=== PATIENT | male | born 1955 | race Caucasian/White ===

== ENCOUNTER 2019-08-20 21:49 | Inpatient (IN) | payer MEDICARE, OTHER, SELFPAY ==
--- NOTE | 2019-08-20 22:16 | DI.RAD.S_ITS ---
PROCEDURE: XR CHEST 1V INDICATIONS: SOB, fatigue TECHNIQUE: One view of the chest was acquired. COMPARISON: None. FINDINGS: Surgical changes and devices: None. Lungs and pleura: Diffuse interstitial prominence. Veil-like opacification of the costophrenic angles posterior representing small bilateral pleural effusions. No pneumothorax. No focal consolidation. Mediastinum: Mediastinal contours appear normal. Heart size is prominent. Bones and chest wall: No suspicious bony lesions. Overlying soft tissues appear unremarkable. IMPRESSION: Diffuse interstitial prominence with mild enlargement of the cardiac silhouette may represent early pulmonary edema/CHF. An infectious/inflammatory process excluded if clinically appropriate. Dictated by: Ronaldo Hampton M.D. on 08/21/2019 at 8:58 Approved by: Ronaldo Hampton M.D. on 08/21/2019 at 8:59
--- NOTE | 2019-08-20 22:20 | ED_ITS ---
HPI - SOB/Dyspnea General Chief Complaint: Extremity Problem,Nontraumatic Stated Complaint: LEFT LEG INFECTION BOT LEGS ARE SWELLING Time Seen by Provider: 08/20/19 21:53 Source: patient and family Mode of arrival: Wheelchair Limitations: no limitations History of Present Illness HPI Narrative: 63-year-old male smoker with history of CHF, AFib (not coagulated), hypertension, diabetes, morbid obesity presents with his in the chief complaint of worsening fatigue, shortness of breath and swelling in his lower extremities. His shortness of breath become significant when laying flat and with exertion. He complains of a 40 lb weight gain in the past month or so. He has pain in both feet as a consequence of his swelling. He denies any chest pain is not dizzy or lightheaded. He was seen at an outside facility a few weeks ago under similar circumstances. MD Complaint: shortness of breath Onset (ago): day(s) Severity: moderate Consistency/Duration: constant Relieving factors: rest Exacerbating factors: lying flat and exertion Known history of: congestive heart failure and diabetes Treatment prior to arrival: none Related Data Home oxygen amount: none Home Medications Medication Instructions Recorded Confirmed digoxin 125 mcg PO DAILY 08/20/19 08/20/19 diltiazem HCl 240 mg PO DAILY 08/20/19 08/20/19 fluticasone propion-salmeterol 1 inh INHALATION BID 08/20/19 08/20/19 [Advair Diskus] furosemide [Lasix] 40 mg PO BID 08/20/19 08/20/19 levothyroxine 50 mcg PO DAILY 08/20/19 08/20/19 metoprolol succinate 150 mg PO DAILY 08/20/19 08/20/19 pantoprazole 40 mg PO DAILY 08/20/19 08/20/19 Allergies Allergy/AdvReac Type Severity Reaction Status Date / Time No Known Drug Allergies Allergy Verified 08/20/19 22:26 Review of Systems Constitutional Constitutional: Denies chills, Reports fatigue, Denies fever(s), Denies frequent falls, Denies lethargy and Denies weakness Eyes Eyes: Denies change in vision, Denies eye discharge, Denies irritation and Denies loss of vision ENT Ears, Nose, Mouth, and Throat: Denies change in voice, Denies dizziness, Denies neck pain, Denies sore throat and Denies throat swelling Cardiovascular Cardiovascular: Denies chest pain, Reports pedal edema, Denies irregular heart rhythm, Reports leg edema, Denies lightheadedness, Denies palpitations, Reports dyspnea, Reports dyspnea on exertion and Reports orthopnea Respiratory Respiratory: Denies cough, Reports dyspnea, Reports dyspnea on exertion and Denies wheezing Gastrointestinal Gastrointestinal: Denies abdominal pain, Denies change in bowel habits, Denies diarrhea, Denies nausea and Denies vomiting Musculoskeletal Musculoskeletal: Denies neck pain and Denies numbness Integumentary/Breasts Skin/Breast: Denies pruritus, Denies erythema, Denies rash and Denies wounds Neurologic Neurologic: Denies behavioral changes, Denies confusion, Denies dizziness, Denies frequent falls, Denies loss of vision, Denies numbness and Denies weakness Psychiatric Psychiatric: Denies anxiety, Denies behavioral changes, Denies confusion, Denies depression, Denies homicidal ideation and Denies suicidal ideation Endocrine Endocrine: Reports fatigue, Denies flushing and Denies palpitations Hematologic/Lymphatic Hematologic/Lymphatic: Denies easy bruising Allergic/Immunologic Allergic/Immunologic: Denies urticaria, Denies throat swelling and Denies wheezing Patient History Medical History (Updated 08/21/19 @ 01:14 by JOSE MANUEL Demarco) Acquired hypothyroidism (Acute) Chronic kidney disease, stage 3 (Acute) Congestive heart failure (Acute) COPD (chronic obstructive pulmonary disease) (Acute) Current smoker (Acute) Diabetes mellitus type 2 in obese (Acute) Gastric ulcer (Acute) History of GI bleed (Acute) History of noncompliance with medical treatment (Acute) Iron deficiency anemia (Acute) Morbid obesity (Acute) Obstructive sleep apnea (Acute) Persistent atrial fibrillation (Acute) Social History household members: spouse Smoking Status: Former smoker alcohol intake: former Smoking Status: Current every day smoker Substance Use Type: does not use Exam Narrative Exam Narrative: GENERAL: [] year old patient appears stated age. Well-nourished, well-developed patient, in mild distress.SOB HEAD: Atraumatic. Normocephalic. EYES: Pupils equal round and reactive. Extraocular motions intact. No scleral icterus. No injection or drainage. ENT: Nose without bleeding, purulent drainage. Throat without erythema, tonsillar hypertrophy or exudate. Airway patent. NECK: Trachea midline. Non tender CARDIOVASCULAR: Tachycardic and irregular rhythm without murmurs, gallops, or rubs. RESPIRATORY: Decreased breath sounds bilaterally with expiratory wheeze and faint crackles in bases GASTROINTESTINAL: Abdomen soft, non-tender, nondistended. EXTREMITIES: Significant lower extremity swelling with tense edema, erythema bilaterally BACK: Nontender without deformity or crepitance. No flank tenderness. NEURO: AOx3. SKIN: No rash or erythema of visible areas other than that which is noted above Initial Vital Signs Initial Vital Signs: Vital Signs Temperature 99.6 F 08/20/19 22:21 Pulse Rate 143 H 08/20/19 22:21 Respiratory Rate 32 H 08/20/19 22:21 Blood Pressure 159/84 H 08/20/19 22:21 Pulse Oximetry 96 08/20/19 22:21 Course Orders Ordered: ED Orders 08/20/19 22:16 XR chest 1V Stat 08/20/19 22:25 Digoxin Stat 08/20/19 22:35 C-Reactive Protein Quant Stat Complete Blood Count AUTO DIFF Stat Comprehensive Metabolic Panel Stat Ferritin Stat Lactate (Lactic Acid) Stat Lipase Stat Magnesium Stat NT-proBNP (BNP-Adult 18+) Stat Prothrombin Time INR Stat Troponin & CK Cardiac Panel Stat 08/20/19 22:45 Blood Culture Stat 08/21/19 EC echo doppler complete Routine 08/21/19 00:14 Consult to Dietitian, Adult Routine Consult to Discharge Planning Routine 08/21/19 00:23 EKG-12 Lead Stat 08/21/19 00:24 Urinalysis and Microscopic Routine 08/21/19 05:00 Basic Metabolic Panel Routine Complete Blood Count AUTO DIFF Routine Magnesium Routine Acetaminophen (Tylenol) 975 mg PO Q8H PRN PRN Reason: Fever/Mild Pain (1-3) Al Hydrox/Mg Hydrox/Simethicone (Maalox Plus) 30 ml PO Q6HR PRN PRN Reason: Dyspepsia Albuterol (Ventolin Hfa (Vent/Covid R/O)) 1 puff INH RTQ4HR PRN PRN Reason: Shortness Of Breath Albuterol/Ipratropium (Combivent Respimat) 2 puff INH RTBID [facility] Bisacodyl (Dulcolax) 10 mg PO DAILY PRN PRN Reason: Constipation Dextrose (D50w) 25 gm IV PRN PRN; Protocol PRN Reason: Hypoglycemia Digoxin (Lanoxin) 0.125 mg PO DAILY [facility] Diltiazem HCl (Cardizem Cd) 240 mg PO DAILY [facility] Docusate Sodium (Colace) 100 mg PO BID PRN PRN Reason: Constipation Ferrous Sulfate (Ferrous Sulfate) 325 mg PO BIDWM [facility] Furosemide (Lasix) 40 mg PO BID [facility] DILTIAZEM (Diltiazem 125 Mg/125 Ml-D5w) 125 mg in 125 mls @ 5 mls/hr IV TITRATE [facility]; Protocol Last Titration: 08/21/19 01:50 Dose: 15 mg/hr, 15 mls/hr Documented by: Titration: 08/21/19 00:57 Dose: 10 mg/hr, 10 mls/hr Documented by: Titration: 08/21/19 00:01 Dose: 7 mg/hr, 7 mls/hr Documented by: [email or web address] Admin: 08/20/19 22:50 Dose: 5 mg/hr, 5 mls/hr Documented by: TAMMY Magnesium Sulfate (Magnesium Sulfate) 2 gm in 50 mls @ 25 mls/hr IV NOW ONE Stop: 08/21/19 02:05 Last Admin: 08/21/19 01:01 Dose: 25 mls/hr Documented by: GLADYS Cosigned by: BON Insulin Aspart (Novolog Flexpen) 0 unit SUBCUT ACHS [facility]; Protocol Levothyroxine Sodium (Synthroid) 50 mcg PO DAILY [facility] Naloxone HCl (Narcan) 0.2 mg IV Q2MIN PRN PRN Reason: Opiate Reversal Non-Formulary Medication (Metoprolol Succinate) 150 mg PO DAILY [facility] Ondansetron HCl (Zofran) 4 mg IV Q8HR PRN PRN Reason: Nausea And Vomiting Oxycodone HCl (Percolone) 10 mg PO Q6HR PRN PRN Reason: Pain, Severe (7-10) Oxycodone HCl (Percolone) 5 mg PO Q6HR PRN PRN Reason: Pain, Moderate (4-6) Pantoprazole Sodium (Protonix) 40 mg IV DAILY [facility] Polyethylene Glycol (Miralax) 17 gm PO DAILY PRN PRN Reason: Constipation Fluticasone/Salmeterol (Advair 250/50 Diskus) 1 puff INH BID [facility] Sodium Chloride (Normal Saline 0.9% Flush) 10 ml IV PRN PRN PRN Reason: Flush Last Admin: 08/21/19 01:03 Dose: 10 ml Documented by: GLADYS Sodium Chloride (Normal Saline 0.9% Flush) 10 ml IV BID [facility] Discontinued Medications Aspirin (Aspirin Ec) 81 mg PO DAILY [facility] Diltiazem HCl (Cardizem) 20 mg IV NOW ONE Stop: 08/20/19 22:45 Last Admin: 08/20/19 22:50 Dose: 20 mg Documented by: TAMMY Enoxaparin Sodium (Lovenox) 165 mg 1 mg/kg (165 mg) SUBCUT BID [facility] Last Admin: 08/21/19 01:07 Dose: Not Given Documented by: GLADYS Furosemide (Lasix) 40 mg IV NOW ONE Stop: 08/20/19 23:20 Last Admin: 08/20/19 23:25 Dose: 40 mg Documented by: TAMMY Metoprolol Tartrate (Lopressor) 5 mg IV NOW ONE Stop: 08/21/19 01:26 Last Admin: 08/21/19 01:29 Dose: 5 mg Documented by: GLADYS Oxycodone HCl (Percolone) 5 mg PO NOW ONE Stop: 08/20/19 23:40 Last Admin: 08/20/19 23:51 Dose: 5 mg Documented by: TAMMY Vital Signs Vital signs: Vital Signs - 8 hr 08/20/19 22:21 08/20/19 22:30 08/20/19 22:50 Temperature 99.6 F Pulse Rate 143 H 147 H 142 H Respiratory Rate 32 H 32 H Blood Pressure 159/84 H 173/93 H 173/93 H Pulse Oximetry 96 93 08/20/19 23:00 08/21/19 00:00 Temperature Pulse Rate 127 H 137 H Respiratory Rate 32 H 27 H Blood Pressure 128/69 151/67 H Pulse Oximetry 95 96 MDM - SOB/Dyspnea Lab Data Result diagrams: 08/20/19 22:35 08/20/19 22:35 Labs: Lab Results 08/20/19 08/20/19 08/20/19 Range/Units 22:25 22:35 22:35 WBC 8.0 (4.5-11.0) X10^3/uL RBC 4.16 L (4.5-5.9) X10^6/uL Hgb 9.2 L (13.5-17.5) g/dL Hct 29.9 L (41-53) % MCV 71.9 L (80-100) fL MCH 22.0 L (26-34) PG MCHC 30.6 (30-36) % RDW 21.7 H (11.6-14.8) % Plt Count 112 L (150-400) X10^3/uL Neut % (Auto) 74.8 (50-75) % Lymph % (Auto) 9.8 L (25-40) % Coleman % (Auto) 12.9 (3-14) % Eos % (Auto) 1.1 L (2-4) % Baso % (Auto) 1.4 (0-2) % Neut # (Auto) 6000 (7964-2285) /uL Lymph # (Auto) 800 L (1839-4896) /uL Coleman # (Auto) 1000 H (0-900) /uL Eos # (Auto) 100 (0-450) /uL Baso # (Auto) 100 (0-100) /uL RBC Morphology See below Anisocytosis 2+ H PT (10.1-12.7) SECONDS INR (0.9-1.3) Sodium 137 (137-145) mmol/L Potassium 4.3 (3.4-5.1) mmol/L Chloride 94 L (98-107) mmol/L Carbon Dioxide 36 H (22-32) mmol/L BUN 33 H (9-20) mg/dL Creatinine 1.24 (0.66-1.25) mg/dL Estimated GFR 59.3 L (>60) mL/min BUN/Creatinine Ratio 26.6 H (6-22) Glucose 141 H (80-110) mg/dL Hemoglobin A1c (4.0-6.0) % Lactate (0.7-2.1) mmol/L Calcium 9.1 (8.4-10.2) mg/dL Magnesium (1.6-2.3) mg/dL Ferritin (18-464) ng/mL Total Bilirubin 1.1 (0.2-1.3) mg/dL AST 19 (17-59) IU/L ALT 10 (<50) IU/L Alkaline Phosphatase 92 (38-126) U/L Total Creatine Kinase (55-170) U/L CK-MB (CK-2) CK-MB (CK-2) Rel Index Troponin I (0.01-0.034) ng/mL C-Reactive Protein 3.8 H (<1.0) mg/dL NT-Pro-B Natriuret Pep (<125) pg/mL Total Protein 6.9 (6.3-8.2) g/dL Albumin 3.6 (3.5-5.0) g/dL Globulin 3.3 (1.7-4.1) g/dL Albumin/Globulin Ratio 1.1 (1.0-2.8) Lipase (23-300) U/L Digoxin 0.6 L (0.8-2.0) ng/mL COVID-19 PCR (Negative) 08/20/19 08/20/19 08/20/19 Range/Units 22:35 22:35 22:35 WBC (4.5-11.0) X10^3/uL RBC (4.5-5.9) X10^6/uL Hgb (13.5-17.5) g/dL Hct (41-53) % MCV (80-100) fL MCH (26-34) PG MCHC (30-36) % RDW (11.6-14.8) % Plt Count (150-400) X10^3/uL Neut % (Auto) (50-75) % Lymph % (Auto) (25-40) % Coleman % (Auto) (3-14) % Eos % (Auto) (2-4) % Baso % (Auto) (0-2) % Neut # (Auto) (3358-3024) /uL Lymph # (Auto) (3438-4345) /uL Coleman # (Auto) (0-900) /uL Eos # (Auto) (0-450) /uL Baso # (Auto) (0-100) /uL RBC Morphology Anisocytosis PT 16.4 H (10.1-12.7) SECONDS INR 1.4 H (0.9-1.3) Sodium (137-145) mmol/L Potassium (3.4-5.1) mmol/L Chloride (98-107) mmol/L Carbon Dioxide (22-32) mmol/L BUN (9-20) mg/dL Creatinine (0.66-1.25) mg/dL Estimated GFR (>60) mL/min BUN/Creatinine Ratio (6-22) Glucose (80-110) mg/dL Hemoglobin A1c (4.0-6.0) % Lactate 1.4 (0.7-2.1) mmol/L Calcium (8.4-10.2) mg/dL Magnesium 1.5 L (1.6-2.3) mg/dL Ferritin 11 L (18-464) ng/mL Total Bilirubin (0.2-1.3) mg/dL AST (17-59) IU/L ALT (<50) IU/L Alkaline Phosphatase (38-126) U/L Total Creatine Kinase 23 L (55-170) U/L CK-MB (CK-2) TNP CK-MB (CK-2) Rel Index TNP Troponin I < 0.012 (0.01-0.034) ng/mL C-Reactive Protein (<1.0) mg/dL NT-Pro-B Natriuret Pep 1540 H (<125) pg/mL Total Protein (6.3-8.2) g/dL Albumin (3.5-5.0) g/dL Globulin (1.7-4.1) g/dL Albumin/Globulin Ratio (1.0-2.8) Lipase 159 (23-300) U/L Digoxin (0.8-2.0) ng/mL COVID-19 PCR (Negative) 08/20/19 08/20/19 Range/Units 22:35 23:15 WBC (4.5-11.0) X10^3/uL RBC (4.5-5.9) X10^6/uL Hgb (13.5-17.5) g/dL Hct (41-53) % MCV (80-100) fL MCH (26-34) PG MCHC (30-36) % RDW (11.6-14.8) % Plt Count (150-400) X10^3/uL Neut % (Auto) (50-75) % Lymph % (Auto) (25-40) % Coleman % (Auto) (3-14) % Eos % (Auto) (2-4) % Baso % (Auto) (0-2) % Neut # (Auto) (4813-5719) /uL Lymph # (Auto) (8399-3491) /uL Coleman # (Auto) (0-900) /uL Eos # (Auto) (0-450) /uL Baso # (Auto) (0-100) /uL RBC Morphology Anisocytosis PT (10.1-12.7) SECONDS INR (0.9-1.3) Sodium (137-145) mmol/L Potassium (3.4-5.1) mmol/L Chloride (98-107) mmol/L Carbon Dioxide (22-32) mmol/L BUN (9-20) mg/dL Creatinine (0.66-1.25) mg/dL Estimated GFR (>60) mL/min BUN/Creatinine Ratio (6-22) Glucose (80-110) mg/dL Hemoglobin A1c 6.9 H (4.0-6.0) % Lactate (0.7-2.1) mmol/L Calcium (8.4-10.2) mg/dL Magnesium (1.6-2.3) mg/dL Ferritin (18-464) ng/mL Total Bilirubin (0.2-1.3) mg/dL AST (17-59) IU/L ALT (<50) IU/L Alkaline Phosphatase (38-126) U/L Total Creatine Kinase (55-170) U/L CK-MB (CK-2) CK-MB (CK-2) Rel Index Troponin I (0.01-0.034) ng/mL C-Reactive Protein (<1.0) mg/dL NT-Pro-B Natriuret Pep (<125) pg/mL Total Protein (6.3-8.2) g/dL Albumin (3.5-5.0) g/dL Globulin (1.7-4.1) g/dL Albumin/Globulin Ratio (1.0-2.8) Lipase (23-300) U/L Digoxin (0.8-2.0) ng/mL COVID-19 PCR Negative (Negative) Urine Dip Bedside Urine Glucose Negative Bedside Urine Bilirubin - Negative Bedside Urine Ketone - Negative Urine Specific [place] 1.015 Bedside Urine Occult Blood - Negative Bedside Urine pH 6.0 Bedside Urine Protein - Negative Bedside Urine Urobilinogen - Negative Bedside Urine Nitrite - Negative Bedside Urine Leukocytes - Negative Esterase Discharge Plan Departure Patient Disposition: Admitted As Inpatient Clinical Impression: Atrial fibrillation with RVR Acute CHF Qualifiers: Heart failure type: unspecified Qualified Code(s): I50.9 - Heart failure, unspecified Discharge Date/Time: 08/21/19 00:24 Admit Date/Time: 08/21/19 00:13 Admit Provider: Frantz Alvarez
[2019-08-20 22:21] VITALS: BP 159/84; PULSE 143; RESP 32; TEMP 37.6; O2SAT 96; BMI 53.1
[2019-08-20 22:30] VITALS: BP 173/93; PULSE 147; RESP 32; O2SAT 93
--- NOTE | 2019-08-20 22:30 | PC.NURSE ---
PT arrives stating increasing painful bi lat leg swelling and redness. Pt also states worsening fatigue and shortness of breath worse when flat and with exertion and also states 40 lb weight gain in the past month. Denies chest pain or dizziness. Pt has history of CHF, AFib, htn and diabetes. Pt has bilat diminished LS upon auscultation. Pt is Tachycardic HR 130's and tachcypnea R 30's on RA 92%. Pt states did not take any of his normal home meds today, Dr. Nuñez aware.
[2019-08-20 22:43] LABS: Add Manual Diff / Slide Review NO; Basophils Absolute Auto 100 /uL (0-100); Basophils Percent Auto 1.4 % (0-2); Eosinophils Absolute Auto 100 /uL (0-450); Eosinophils Percent Auto 1.1 % (2-4); Hematocrit 29.9 % (41-53); Hemoglobin 9.2 g/dL (13.5-17.5); Lymphocytes Absolute Auto 800 /uL (1100-4500); Lymphocytes Percent Auto 9.8 % (25-40); Mean Corpuscular HGB Conc 30.6 % (30-36); Mean Corpuscular Volume 71.9 fL (80-100); Monocytes Absolute Auto 1000 /uL (0-900); Monocytes Percent Auto 12.9 % (3-14); Neutrophils Absolute Auto 6000 /uL (1500-7000); Neutrophils Percent Auto 74.8 % (50-75); Platelet Count 112 X10^3/uL (150-400); Red Blood Cell Count 4.16 X10^6/uL (4.5-5.9); Red Cell Distribution Width 21.7 % (11.6-14.8)
[2019-08-20 22:49] LABS: INR 1.4 (0.9-1.3); Prothrombin Time 16.4 SECONDS (10.1-12.7)
[2019-08-20 22:50] VITALS: BP 173/93; PULSE 142
[2019-08-20] MEDS: dilTIAZem 5 MG/ML SDV 20 MG IV (22:50)
[2019-08-20] MEDS: DILTIAZEM 125 MG/125 ML PIGGYBACK IV (22:50)
[2019-08-20 22:54] LABS: Alanine Aminotransferase 10 IU/L (<50); Albumin 3.6 g/dL (3.5-5.0); Albumin Globulin Ratio 1.1 (1.0-2.8); Alkaline Phosphatase 92 U/L (38-126); Aspartate Aminotransferase 19 IU/L (17-59); BUN Creatinine Ratio 26.6 (6-22); Bilirubin Total 1.1 mg/dL (0.2-1.3); Blood Urea Nitrogen 33 mg/dL (9-20); Calcium 9.1 mg/dL (8.4-10.2); Carbon Dioxide 36 mmol/L (22-32); Chloride 94 mmol/L (98-107); Estimated Glomerular Filt Rate 59.3 mL/min (>60); Globulin 3.3 g/dL (1.7-4.1); Glucose 141 mg/dL (80-110); HEMOLYSIS < 15 (0-50); Lactate (Lactic Acid) 1.4 mmol/L (0.7-2.1); Potassium 4.3 mmol/L (3.4-5.1); Sodium 137 mmol/L (137-145); Total Protein 6.9 g/dL (6.3-8.2)
[2019-08-20 22:55] LABS: Creatine Kinase 23 U/L (55-170); Lipase 159 U/L (23-300); Magnesium 1.5 mg/dL (1.6-2.3)
[2019-08-20 23:00] VITALS: BP 128/69; PULSE 127; RESP 32; O2SAT 95
[2019-08-20 23:04] LABS: Anisocytosis 2+
[2019-08-20 23:07] LABS: NT-proBNP (BNP-Adult 18+) 1540 pg/mL (<125); Troponin I < 0.012 ng/mL (0.01-0.034)
[2019-08-20 23:15] LABS: C-Reactive Protein Quant 3.8 mg/dL (<1.0)
[2019-08-20] MEDS: FUROSEMIDE 40 MG/4 ML VIAL IV (23:25)
[2019-08-20 23:29] LABS: Ferritin 11 ng/mL (18-464)
[2019-08-20 23:34] LABS: Digoxin 0.6 ng/mL (0.8-2.0)
[2019-08-20] MEDS: OXYCODONE IR 5 MG TABLET PO (23:51)
[2019-08-21] VITALS (34 sets, daily range): BP systolic 98–153; BP diastolic 57–90; PULSE 97–137; RESP 11–33; TEMP 36.3–37.2; O2SAT 89–96; BMI 55.1
[2019-08-21 00:44] LABS: Hemoglobin A1C% w Est Avg Glu 6.9 % (4.0-6.0)
[2019-08-21] MEDS: MAGNESIUM SULFATE 2 GM/50 ML PIGGYBACK IV (01:01)
[2019-08-21] MEDS: SODIUM CHLORIDE 0.9% FLUSH 10 ML IV ×3 (01:03→17:54)
[2019-08-21 01:16] LABS: COVID19 -Nasal RAPID Negative (Negative)
[2019-08-21] MEDS: METOPROLOL TARTRATE 5 MG/5 ML INJ IV (01:29)
--- NOTE | 2019-08-21 01:50 | PC.ADMIT ---
[id number] Admission Note: Late entry 0100 pt arrived to unit via stretcher. Transfer 1PA to bed. SOB upon excerption. Weakness in BLE. AFIB RVR on tele. HR running in the 130-140s. Dilt gtt running at 7, increased to 10 ml/hr mg/hr per protocol. Pt voiding to urinal. Pt alert and oriented x4. Pt quite the historian. Pt reports pain in BLE at 6/10, reports tolerating pain. Skin check done with LAYLA SALAZAR. Erythema, edema, and flaky skin to BLE. The patient,Patrick Ibrahim,63 y/o, was given written information regarding hospital policies, unit procedures and contact persons. Patient's smoking status: Former smoker. Vital Signs - 8 hr 08/20/19 22:21 08/20/19 22:30 08/20/19 22:50 Temperature 99.6 F Pulse Rate 143 H 147 H 142 H Respiratory Rate 32 H 32 H Blood Pressure 159/84 H 173/93 H 173/93 H Pulse Oximetry 96 93 08/20/19 23:00 08/21/19 00:00 08/21/19 00:40 Temperature 98.3 F Pulse Rate 127 H 137 H 132 H Respiratory Rate 32 H 27 H 18 Blood Pressure 128/69 151/67 H 146/90 H Pulse Oximetry 95 96 95 08/21/19 01:30 Temperature Pulse Rate 125 H Respiratory Rate 15 Blood Pressure 153/84 H Pulse Oximetry 92
--- NOTE | 2019-08-21 01:55 | PC.NURSE ---
Addendum entered by Jaky Maldonado R.N. 08/21/19 04:31: HR now running 100-120. Pt resting without complaints. Wrapped legs in elaina wrap per order Addendum entered by Jaky Maldonado R.N. 08/21/19 02:07: Pt sats dropped to 80% while resting. Started on 2L O2. O2 sats now upto 94%. HR running in the 120s Original Note: Pt HR continues to run 120s-140s. SOB with movement. O2 sats running at 94% on RA. BP 153/84. Metoprolol push given per order and dilt gtt increased to 15ml/hr mg.hr. Antonio RICHARD at bedside. WCTM
--- NOTE | 2019-08-21 02:10 | PM.HP.1 ---
History of Present Illness History of Present Illness Date Patient Seen: 08/21/19 Time Patient Seen: 01:30 Chief complaint: LEFT LEG INFECTION BOT LEGS ARE SWELLING Narrative: Mr. Wakefield is a 63-year-old male with a past medical history significant for morbid obesity, congestive heart failure, atrial fibrillation not on anticoagulation related to bleeding ulcers (02/2019), hypertension, non insulin-dependent diabetes mellitus type 2, COPD, obstructive sleep apnea not using CPAP, and chronic kidney disease stage III who presents to the ER with complaints of worsening fatigue and shortness of breath extremity swelling over the last several days. The patient has associated complaints of orthopnea, bilateral foot pain and reports 40 lb weight gain over the last month. He states he becomes winded going up stairs and has to stop and rest. The patient was admitted to [facility] on July 31 for similar complaints following the patient traveling and for got to take his medications with him for 10 days. The patient states he has been back on his medications for 3 weeks and continues to have increasing swelling and shortness of breath both of which have gotten worse since his recent hospitalization. Patient does endorse eating approximately 2 trace of ice daily. He is diabetic and does daily fingersticks reports blood sugars are in the low 100s. He denies complaints fevers or chills, headaches or dizziness. He has had no nasal congestion or sore throat. Denies known COVID-19 exposures. He states he has not had any chest pain and no palpitations and has not of where of his atrial fibrillation. He does have shortness of breath as noted above and has a chronic cough productive for white sputum. Denies complaints abdominal pain or heartburn, nausea vomiting, diarrhea or constipation. He states his last bowel movement was yesterday morning. He he denies melena or hematochezia. Patient reports nocturia 3-4 times nightly and if he takes his diuretic late he reports nocturia 7-8 times nightly. Upon arrival to the ER the patient's temperature 99.6?, heart rate of 143, blood pressure 159/84, respirations of 32 with a pulse ox of 96 on room air. A chest x-ray obtained which finds enlarged heart with mild vascular congestion. Twelve lead EKG finds atrial fibrillation with a ventricular rate of 131 with a normal axis and no evidence of ischemia or infarct. On laboratory analysis the patient has white count of 8.0, hemoglobin 9.2, hematocrit of 29.9 and platelets 121, MCV is 71.9, MCH is 22.0 and RDW is 21.7. He has a PT of 16.4 and an INR 1.4. On chemistries is electrolytes are within normal range with a potassium of 4.3 and magnesium of 1.5. He has a BUN of 33 and creatinine 1.24. His carbon dioxide level is 36. His liver functions are all within normal range and and has about albumin of 3.6. The patient is on digoxin and has a digit level of 0.6. He has a total CK of 23 with a troponin of less than 0.012 and a BNP elevated at 15 40. His lactic acid of 1.4 and a CRP of 3.8. In the ER the patient received Lasix 40 mg IV x1 and was started on diltiazem with an initial bolus of 20 mg followed by infusion. Patient also received oxycodone 5 mg for pain. The patient is not anticoagulated related to history of bleeding ulcers. The patient is admitted to the hospital for atrial fibrillation with rapid ventricular response and exacerbation of chronic congestive heart failure. Patient History Medical History (Updated 08/21/19 @ 01:14 by JOSE MANUEL Demarco) Acquired hypothyroidism (Acute) Chronic kidney disease, stage 3 (Acute) Congestive heart failure (Acute) COPD (chronic obstructive pulmonary disease) (Acute) Current smoker (Acute) Diabetes mellitus type 2 in obese (Acute) Gastric ulcer (Acute) History of GI bleed (Acute) History of noncompliance with medical treatment (Acute) Iron deficiency anemia (Acute) Morbid obesity (Acute) Obstructive sleep apnea (Acute) Persistent atrial fibrillation (Acute) Surgical History (Updated 08/21/19 @ 02:30 by JOSE MANUEL Demarco) History of drainage of abscess (Acute) Family & Social History Social History: household members spouse Prior Living Arrangements House Safety & Behavioral: Feels Safe in Current Yes Environment Been Physically Hurt or No Threatened By a Person Suicidal Ideation Description None Suicide Plan Description No Plan Tobacco & Substance use: Smoking Status Former smoker Smoking packs per day 1 alcohol intake former Substance Use Type does not use Meds Home Medications and Allergies Home Medications Medication Instructions Recorded Confirmed Type digoxin 62.5 mcg PO DAILY 08/20/19 08/21/19 History diltiazem HCl 240 mg PO DAILY 08/20/19 08/20/19 History fluticasone propion-salmeterol 1 inh INHALATION BID 08/20/19 08/20/19 History [Advair Diskus] levothyroxine 50 mcg PO DAILY 08/20/19 08/20/19 History metoprolol succinate 150 mg PO DAILY 08/20/19 08/21/19 History pantoprazole 40 mg PO DAILY 08/20/19 08/20/19 History metoprolol succinate 50 mg PO BEDTIME 08/21/19 08/21/19 History torsemide 20 mg PO DAILY 08/21/19 08/21/19 History Allergies Allergy/AdvReac Type Severity Reaction Status Date / Time No Known Drug Allergies Allergy Verified 08/20/19 22:26 Review of Systems Review of Systems ROS: Yes All systems reviewed with the patient and are negative except as otherwise documented Exam Vital Signs (past 8 hours): - 08/20/19 22:21 08/20/19 22:30 08/20/19 22:50 Temperature 99.6 F Pulse Rate 143 H 147 H 142 H Respiratory Rate 32 H 32 H Blood Pressure 159/84 H 173/93 H 173/93 H Pulse Oximetry 96 93 08/20/19 23:00 08/21/19 00:00 08/21/19 00:40 Temperature 98.3 F Pulse Rate 127 H 137 H 132 H Respiratory Rate 32 H 27 H 18 Blood Pressure 128/69 151/67 H 146/90 H Pulse Oximetry 95 96 95 08/21/19 01:30 08/21/19 02:00 Temperature Pulse Rate 125 H 117 H Respiratory Rate 15 28 H Blood Pressure 153/84 H 136/75 Pulse Oximetry 92 92 Oxygen Delivery Method Room Air Narrative Exam Narrative: GENERAL APPEARANCE: well developed, morbidly obese male, BMI 55.2, with mild dyspnea HEENT: Normocephalic, PERRLA, conjunctiva clear, EOMs intact without nystagmus, no sinus tenderness to percussion, no rhinorrhea, mucous membranes are moist and pink without lesions or exudate. NECK/THYROID: neck supple, no JVD, no carotid bruit, no thyromegaly, trachea midline. LYMPH NODES: no cervical or supraclavicular lymphadenopathy. SKIN: [place], warm and dry, no visible lesions, rashes, ulcerations or petechiae. HEART: regular rate and rhythm, S1-S2, no murmur, laterally displaced PMI, no rubs or gallops, anasarca to lower abdomen, 4+ edema BLE. LUNGS: Breath sounds with expiratory wheezing in all kaufman, no coarseness or crackles, no cough present, speaking in full sentences. CHEST: Symmetrical movement, no accessory muscle use, good tidal volume. ABDOMEN: Soft, no distention, no abdominal tenderness, no guarding or peritoneal signs, no organomegaly though exam limited due to body habitus, active bowel tones. EXTREMITIES: moves all extremities, strength is 4/5 and symmetrical, no deformities or joint effusions. NEUROLOGIC: AAO x3, cranial nerves II-XII grossly intact, sensation intact to light touch, hearing grossly normal to speech. PSYCH: Fair to poor eye contact, limited insight, tangential thought, cooperative, flat affect with stable behavior Objective Labs Result Diagrams: 08/20/19 22:35 08/20/19 22:35 Labs: Laboratory Results - last 24 hr 08/20/19 08/20/19 08/20/19 22:25 22:35 22:35 WBC 8.0 RBC 4.16 L Hgb 9.2 L Hct 29.9 L MCV 71.9 L MCH 22.0 L MCHC 30.6 RDW 21.7 H Plt Count 112 L Neut % (Auto) 74.8 Lymph % (Auto) 9.8 L Burnett % (Auto) 12.9 Eos % (Auto) 1.1 L Baso % (Auto) 1.4 Neut # (Auto) 6000 Lymph # (Auto) 800 L Burnett # (Auto) 1000 H Eos # (Auto) 100 Baso # (Auto) 100 RBC Morphology See below Anisocytosis 2+ H PT INR Sodium 137 Potassium 4.3 Chloride 94 L Carbon Dioxide 36 H BUN 33 H Creatinine 1.24 Estimated GFR 59.3 L BUN/Creatinine Ratio 26.6 H Glucose 141 H Hemoglobin A1c Lactate Calcium 9.1 Magnesium Ferritin Total Bilirubin 1.1 AST 19 ALT 10 Alkaline Phosphatase 92 Total Creatine Kinase CK-MB (CK-2) CK-MB (CK-2) Rel Index Troponin I C-Reactive Protein 3.8 H NT-Pro-B Natriuret Pep Total Protein 6.9 Albumin 3.6 Globulin 3.3 Albumin/Globulin Ratio 1.1 Lipase Digoxin 0.6 L COVID-19 PCR 07/03/1008/20/19 08/20/19 22:35 22:35 22:35 WBC RBC Hgb Hct MCV MCH MCHC RDW Plt Count Neut % (Auto) Lymph % (Auto) Burnett % (Auto) Eos % (Auto) Baso % (Auto) Neut # (Auto) Lymph # (Auto) Burnett # (Auto) Eos # (Auto) Baso # (Auto) RBC Morphology Anisocytosis PT 16.4 H INR 1.4 H Sodium Potassium Chloride Carbon Dioxide BUN Creatinine Estimated GFR BUN/Creatinine Ratio Glucose Hemoglobin A1c Lactate 1.4 Calcium Magnesium 1.5 L Ferritin 11 L Total Bilirubin AST ALT Alkaline Phosphatase Total Creatine Kinase 23 L CK-MB (CK-2) TNP CK-MB (CK-2) Rel Index TNP Troponin I < 0.012 C-Reactive Protein NT-Pro-B Natriuret Pep 1540 H Total Protein Albumin Globulin Albumin/Globulin Ratio Lipase 159 Digoxin COVID-19 PCR 08/20/19 08/20/19 22:35 23:15 WBC RBC Hgb Hct MCV MCH MCHC RDW Plt Count Neut % (Auto) Lymph % (Auto) Burnett % (Auto) Eos % (Auto) Baso % (Auto) Neut # (Auto) Lymph # (Auto) Burnett # (Auto) Eos # (Auto) Baso # (Auto) RBC Morphology Anisocytosis PT INR Sodium Potassium Chloride Carbon Dioxide BUN Creatinine Estimated GFR BUN/Creatinine Ratio Glucose Hemoglobin A1c 6.9 H Lactate Calcium Magnesium Ferritin Total Bilirubin AST ALT Alkaline Phosphatase Total Creatine Kinase CK-MB (CK-2) CK-MB (CK-2) Rel Index Troponin I C-Reactive Protein NT-Pro-B Natriuret Pep Total Protein Albumin Globulin Albumin/Globulin Ratio Lipase Digoxin COVID-19 PCR Negative Assessment & Plan Assessment & Plan narrative: This is a 63-year-old male patient who presents to the emergency department with worsening shortness of breath, extremity swelling and fatigue with orthopnea is found to be in atrial fibrillation with RVR. He reports 40 lb weight gain in the last month. 1. Atrial fibrillation with rapid ventricular response, present on admission, active. -patient with probable chronic atrial fibrillation as the patient is not aware palpitations or rapid heartbeat. No prior EKG for comparison. -12 lead EKG finds atrial fibrillation with a ventricular rate of 131 with a normal axis without evidence of ischemia or infarct. Patient with PVCs on telemetry. -potassium is 4.3 and magnesium is 1.5, ordered 2 g of magnesium sulfate IV now. -total CK is 23, troponin is negative at 0.012 and BNP is elevated at 1540. -in the ER the patient received Cardizem 20 mg IV bolus and started on Cardizem infusion. On upon arrival to the ICU the patient remains tachycardic in the 130s to 160s, ordered 5 mg of metoprolol tartrate IV. -the patient has been on digoxin 62.5 mcg daily and has a subtherapeutic digoxin level of 0.6. Ordered digoxin 125 mcg daily, will recheck level. -the patient has been taking metoprolol succinate 150 mg in the morning and 50 mg at night. Ordered metoprolol succinate 100 mg now and twice daily. -the patient is unable to be anticoagulated related to recent history of bleeding gastric ulcers requiring transfusion of multiple units of blood while on Xarelto. -ordered echocardiogram. 2. Acute exacerbation of chronic congestive heart failure, unknown if systolic, diastolic or both, present on admission, active. -patient admitted to [facility] on 08/01/2019 for same complaint of shortness of breath with hypoxia at that time and leg swelling and underwent diuresis. -the patient denies chest pain, diminished breath sounds bibasilar, reports orthopnea and exertional dyspnea that has worsened over the last several days commensurate with increased leg edema. Patient presents with anasarca to lower abdomen, 4+ edema bilateral lower extremities. -patient has a negative troponin at less than 0.012 with an elevated proBNP of 1540 4. -the patient has been taking 40 mg of Lasix twice daily. He received 40 mg Lasix in the emergency department, ordered Lasix 80 mg twice daily. 3. Chronic kidney disease stage 3, present on admission, stable. -during hospitalization at [facility] 3 weeks ago, the patient had a creatinine of 1.6 with an EGFR of 44. The patient presents today with a BUN of 33 and creatinine 1.24. His EGFR is 59.3, his creatinine clearance is estimated to be 149.98 mL/minute. -ordered urinalysis with micro and culture as indicated. -with increased diuresis will monitor renal function. 4. COPD without exacerbation, present on admission, stable -the patient is a current smoker, he smokes 1/2 pack per day and is attempting to quit. Offered a Nicoderm patch in the patient declined. -patient maintaining an oxygen saturation 90-92% on room air with a respiratory rate of 18 to 22. He speaking in full sentences. -requested RT to consult, evaluate and treat. -will continue the patient's Advair inhaler twice daily. -ordered albuterol ipratropium inhaler twice daily and albuterol inhaler every 4 hours as needed. 5. Iron deficiency anemia, unclear if blood loss or dietary in origin, present on admission, stable. -patient has a hemoglobin of 8.0 and hematocrit of 29.9 with an MCV is 71.9 and MCH of 22.0 which is decreased compared to 3 weeks ago when he had a hemoglobin of 8.5, hematocrit of 32.1, MCV of 79.3 and MCH of 21. -iron panel obtained 3 weeks ago then an iron level of 9, TIBC 497, saturation 2%, transferrin, 355, ferritin 10.3. -patient does have a history of GI bleeding. BUN is elevated but likely secondary to diuresis. He was guaiac negative at [facility]. Ordered stool guaiac daily x2. -ordered iron 325 mg twice daily with meals. Unable to administer aspirin to enhance absorption due to history of bleeding ulcers. -will follow blood count. 6. Diabetes mellitus type 2, diet-controlled, without complication, chronic, stable. -the patient is not currently using diabetic medication. His glucose on admission is 141. Hemoglobin A1c is 6.9, 3 weeks ago was 6.1 reflecting worsening glycemic control. -ordered fingersticks a.c. and HS with correctional insulin low-dose scale. -diet: Small constant carbohydrate, requested dietitian to consult 7. Acquired hypothyroidism, chronic, stable. -TSH was assessed 3 weeks ago and found to be 0.9. -will continue current home regimen of levothyroxine 50 mcg daily 8. Super morbid obesity with a BMI of 55.2 -when the patient is a 40 lb weight gain over the last month is accounted for the patient would still have a BMI 50.33. -requested dietitian consult. 9. Obstructive sleep apnea, not using CPAP, chronic, stable. -the patient is able to moan obtain adequate oxygenation, remains appropriately responsive no evidence of hypercarbia. VTE prophylaxis: Leoncio wraps bilateral lower extremities, heparin IV fluid: Diltiazem infusion Diet: Small constant carbohydrate Code status: FULL CODE, the patient designates his Jennifer to be his surrogate decision maker. The patient is admitted to the intensive care unit for atrial fibrillation with rapid ventricular response and exacerbation of chronic CHF. The patient is admitted as an inpatient with expected length of stay to be greater than 2 midnights. Critical care time: 50 minutes with greater than 50% of the time spent in direct [id number] with the patient COVID-19 COVID-19 status: Negative Result date/Date tested (Pos, Neg/Pending): 08/21/19 Scores GCS Doyle coma scale eye opening: Spontaneous Doyle coma scale verbal response: Orientated Doyle coma scale motor response: Obey commands Lzi coma scale total score: 15 CHADS-VASc Congestive heart failure: yes Hypertension: yes Age 75 years or older: no Diabetes mellitus: yes Stroke, TIA, or TE: no Vascular disease: yes Age 65 to 74 years: no Sex category (female): Male CHADS-VASc Score: 4 Quality VTE Deep Vein Thrombosis/Pulmonary Embolism Present on Admission: No
[2019-08-21] MEDS: METOPROLOL ER 50 MG TABLET 100 MG PO ×2 (02:38→21:11)
[2019-08-21] MEDS: ALBUTEROL/IPRATROPIUM MDI 2 PUFF INH ×2 (04:57→21:07)
[2019-08-21 05:21] LABS: Add Manual Diff / Slide Review NO; Basophils Absolute Auto 100 /uL (0-100); Eosinophils Absolute Auto 100 /uL (0-450); Eosinophils Percent Auto 1.6 % (2-4); Hematocrit 28.7 % (41-53); Hemoglobin 8.9 g/dL (13.5-17.5); Lymphocytes Absolute Auto 1200 /uL (1100-4500); Lymphocytes Percent Auto 14.1 % (25-40); Mean Corpuscular HGB Conc 31.1 % (30-36); Mean Corpuscular Hemoglobin 22.4 PG (26-34); Monocytes Absolute Auto 1100 /uL (0-900); Monocytes Percent Auto 13.5 % (3-14); Neutrophils Absolute Auto 5800 /uL (1500-7000); Neutrophils Percent Auto 69.8 % (50-75); Platelet Count 123 X10^3/uL (150-400); Red Blood Cell Count 3.98 X10^6/uL (4.5-5.9); Red Cell Distribution Width 21.3 % (11.6-14.8); White Blood Cell Count 8.2 X10^3/uL (4.5-11.0)
[2019-08-21 05:33] LABS: BUN Creatinine Ratio 27.8 (6-22); Blood Urea Nitrogen 30 mg/dL (9-20); Calcium 8.5 mg/dL (8.4-10.2); Carbon Dioxide 38 mmol/L (22-32); Chloride 96 mmol/L (98-107); Estimated Glomerular Filt Rate > 60.0 mL/min (>60); Glucose 115 mg/dL (80-110); HEMOLYSIS < 15 (0-50); Magnesium 1.9 mg/dL (1.6-2.3); Sodium 137 mmol/L (137-145)
[2019-08-21 05:38] LABS: Anisocytosis 2+
[2019-08-21 05:39] LABS: Microcytosis 1+; Polychromasia 1+
[2019-08-21 06:46] LABS: Troponin I < 0.012 ng/mL (0.01-0.034)
--- NOTE | 2019-08-21 08:29 | P.EN_ITS ---
Event Note Date Patient Seen: 08/21/19 Time Patient Seen: 08:00 Event Note: Patient admitted after midnight and re-evaluated this morning. He seems a little confused and pulled out his IV line. I have ordered an ABG. He is currently on 2 L NC. Maintain O2 sat 88-90%. He had transthoracic echo done at [facility] on 08/04/2019 so I canceled the 1 ordered for here. His echo showed mild concentric LVH, normal LVEF 60-65%, moderate RV enlargement, mildly impaired RV systolic function. As compared to prior echo from 01/05 the RV enlargement and diminished function were new findings. Estimated RVSP 55 mmHg which was increased compared to prior echo. The IVC was dilated with less than 50% inspiratory collapse suggestive of our AP of at least 15 mmHg. He was in AFib during the procedure. Patient has marked anasarca likely related to cor pulmonale from untreated sleep apnea. Continue IV diuresis with furosemide. Taper off diltiazem drip. Discontinued oxycodone order as patient states he is not in any pain. Also on recent records from [facility] it shows patient as taking gabapentin which he states he was not prescribed and does not take.
[2019-08-21] MEDS: FUROSEMIDE 100 MG/10 ML VIAL 80 MG IV ×2 (08:48→17:53)
[2019-08-21] MEDS: PANTOPRAZOLE 40 MG VIAL IV (08:48)
[2019-08-21] MEDS: FERROUS SULFATE 325 MG TABLET PO ×2 (08:48→16:45)
[2019-08-21] MEDS: DOCUSATE 100 MG CAPSULE PO ×2 (08:48→21:12)
[2019-08-21] MEDS: MAGNESIUM OXIDE 400 MG TABLET PO (08:48)
[2019-08-21] MEDS: DILTIAZEM 125 MG/125 ML PIGGYBACK 15 MG IV (08:48)
[2019-08-21] MEDS: LEVOTHYROXINE 50 MCG TABLET PO (08:48)
[2019-08-21] MEDS: DIGOXIN 0.125 MG TABLET PO (08:49)
[2019-08-21] MEDS: dilTIAZem CD 240 MG CAP PO (08:49)
[2019-08-21 09:54] LABS: HCO3 ABG 36 mmol/L (22-26); PCO2 ABG 50.7 mmHg (35-45); TCO2 ABG 38 mmol/L (21-31); pH ABG 7.46 (7.35-7.45)
[2019-08-21 09:57] LABS: Fractionated Inspired Oxygen 21; Oxygen Saturation ABG 84 % (95-100); PO2 ABG 47 mmHg (80-100)
[2019-08-21] MEDS: ACETAMINOPHEN 325 MG TABLET 975 MG PO ×2 (10:32→21:15)
[2019-08-21] MEDS: HEPARIN 5,000 UNIT/ML VIAL 5000 UNIT SUBCUT ×2 (10:33→21:11)
[2019-08-21 11:02] LABS: Bacteria Urine None Seen; RBC Urine None Seen (0-5/HPF); WBC Urine None Seen (0-5/HPF)
[2019-08-21 11:03] LABS: Appearance Urine UA CLEAR; Bilirubin Urine UA NEGATIVE (NEGATIVE); Color Urine UA YELLOW; Glucose Urine UA NEGATIVE (Negative); Ketones Urine UA NEGATIVE (NEGATIVE); Leukocyte Esterase Urine UA NEGATIVE (NEGATIVE); Nitrite Urine UA NEGATIVE (Negative); Occult Blood Urine UA NEGATIVE (Negative); Protein Urine UA NEGATIVE (Negative); Urobilinogen Urine UA 0.2 E.U./dL (0.2); pH Urine UA 6.5 (4.5-8.0)
[2019-08-21 11:08] LABS: Culture Indicated Urine Cult Not Indicated; Urine Comments Microscopic Normal
[2019-08-21] MEDS: FLUTICASONE/SALMETEROL 250/50 60 PUFF DISKUS INH ×2 (11:21→21:07)
--- NOTE | 2019-08-21 12:04 | CM.DANOTE ---
Discharge Planning/Care Management DCP: assessment: case received and met with pt during Team Bedside Rounds. Introduced self and role. Pt is a 63 year old male who admitted early this morning to care of hospitalist team. Dr. Rico stated that pt was admitted for exacerbation of CHF; this in setting of morbid obesity and other medical comorbid conditions. Payer: Medicare and [employer]. Admission status: INPT: per [facility] LAYLA Sidhu. PCP: pt not quite sure: says is with the [facility]. Pt confirmed that he lives with his in [place]. He uses a cane at baseline. Does not use o2 in the home setting. DCP team will be following as POC unfolds to assist with d/c issues and options. CM Discharge Assessment Start: 08/21/19 12:03 Freq: Status: Active Protocol: Document 08/21/19 12:03 ITV (Rec: 08/21/19 12:04 ITV [email or web address]) Discharge Planning Assessment Advance Directives? No History Provided By Patient,Medical Record Prior Living Arrangements House Household Members spouse Independent with ADL's Yes Is patient alert and oriented? Yes DME Already Rented / Owned Cane White board Updated in Patient Room with Yes name and ext. # of [employer] Operator Review Status In Process
[2019-08-21] MEDS: INSULIN ASPART 100 UNIT/ML INSULN PEN SUBCUT ×3 (13:26→21:10)
--- NOTE | 2019-08-21 13:47 | PC.NURSE ---
Addendum entered by Anshu Mckeon R.N. 08/21/19 14:42: Spoke with pt's , Jennifer, via telephone with pt's consent. Jennifer states that pt has a poor memory, is unsteady with mobility, and overall is not caring for himself. She is unaware if he has or hasn't been compliant with medications. She states that he frequently consumes foods that are high in sodium such as an entire jar of pickles with the juice. She states she feels that she can't take care of him at home and feels that he would be better suited in an environment where someone can monitor his medications, mobility, and diet. Relayed message to Candida in d/c planning. Original Note: Rec'd sitting upright in bed drowsy and confused holding his IV catheter and apologizing. Per report, pt has been taking off O2, monitoring devices, and picking at clothing. Pt is following directions. Speech is mildly slurred but pt is able to correct with cueing and prompting. He is unable to to correctly identify specific date/time and is mildly confused re situation but is able to tell me his name, , month, year. He is a poor historian of health history and current medications. He denies feeling dizzy or lightheaded. He denies numbness, tingling, burning of arms/legs. Although he later states that his feet are numb at times but not currently. Reported assessment findings to Dr. Rico and received orders for ABG urgent. Notified RT of order. ABG was obtained and given to Dr. Rico with no new orders. Pt is noted to be 84-88% on RA and 88-93% on 2L NC. He reports some right shoulder aches that are exacerbated with movement over the past week. Pain improves with tylenol and warm compresses. Called to Dr. Rico and requested clarification of fluid restriction and parameters for diltiazem weaning. Orders received and chart updated per TOR[facility]. Pt has been sitting up to chair, mostly sleeping this shift. Chair alarm on, call light in reach.
--- NOTE | 2019-08-21 14:47 | DIET.PN ---
Addendum entered by Allison Lopez 08/22/19 18:45: Pt has CHF and DM2 nutrition handouts in d/c folder Original Note: Dietary Progress Note Assessment: 63y M admitted for anasarca secondary to CHF exacerbation c hx of morbid obesity, HTN, DM2-diet controlled, COPD, and CKD3 referred to nutrition for the same. Pt sitting up in chair, expresses understanding that his significant edema is result of heart disease. When asked if he has had dietary instruction to manage condition, pt reports not really. Pt reports being open to education but became less conversant at this point. Pt is -1.8L today with diuresis but reports 40# weight gain recently. Per nursing who talked to pts spouse, he is known to eat whole jars of pickles including the juice and fills his plates so full of food that it rolls off the sides. Pt's spouse resistant to visiting while in hospital r/t fear of covid exposure. HT: 175.2cm WT: 169.5kg BMI: 55.2 Labs: A1c 6.9, CRP 3.8 H, BNP 1540 H, eGFR and Cr WNL MNA: 13 Jose Luis: 18 Diet Order: CCD/fluid restriction Monitoring/Evaluations: will defer EER calculations until pt nearer to dry weight r/t reported 40# weight gain recently RD f/u Sunday c CHF ed
[2019-08-22] VITALS (8 sets, daily range): BP systolic 96–124; BP diastolic 51–76; PULSE 92–110; RESP 13–20; TEMP 36.2–37.1; O2SAT 90–94
[2019-08-22] MEDS: OXYCODONE IR 5 MG TABLET PO ×4 (01:50→21:13)
--- NOTE | 2019-08-22 02:07 | PC.NURSE ---
Pt. c/o leg pain, medicated with Oxycodone 5 mg. po. Bilateral lower extremities rewrapped with bigger elaina wrap. Pt. on recliner chair with legs elevated.
[2019-08-22] MEDS: FUROSEMIDE 100 MG/10 ML VIAL 80 MG IV ×2 (06:32→17:56)
[2019-08-22] MEDS: SODIUM CHLORIDE 0.9% FLUSH 10 ML IV ×3 (06:33→21:07)
[2019-08-22] MEDS: PANTOPRAZOLE 40 MG TABLET PO (06:33)
[2019-08-22] MEDS: ALBUTEROL/IPRATROPIUM MDI 2 PUFF INH (08:52)
[2019-08-22] MEDS: FLUTICASONE/SALMETEROL 250/50 60 PUFF DISKUS INH ×2 (08:53→20:54)
[2019-08-22] MEDS: ACETAMINOPHEN 325 MG TABLET 975 MG PO (08:59)
[2019-08-22] MEDS: METOPROLOL ER 50 MG TABLET 100 MG PO ×2 (08:59→21:06)
[2019-08-22] MEDS: MAGNESIUM OXIDE 400 MG TABLET PO (09:00)
[2019-08-22] MEDS: dilTIAZem CD 240 MG CAP PO (09:00)
[2019-08-22] MEDS: DOCUSATE 100 MG CAPSULE PO ×2 (09:00→21:07)
[2019-08-22] MEDS: DIGOXIN 0.125 MG TABLET PO (09:00)
[2019-08-22] MEDS: LEVOTHYROXINE 50 MCG TABLET PO (09:00)
[2019-08-22] MEDS: FERROUS SULFATE 325 MG TABLET PO ×2 (09:00→16:48)
[2019-08-22] MEDS: HEPARIN 5,000 UNIT/ML VIAL 5000 UNIT SUBCUT ×2 (09:01→21:06)
[2019-08-22] MEDS: INSULIN ASPART 100 UNIT/ML INSULN PEN SUBCUT ×3 (09:01→16:48)
--- NOTE | 2019-08-22 11:27 | CM.DPC ---
DCP: continued. Met again with pt during Team Bedside Rounds. Pt reports he wants to go home as soon as possible and is not interested in consideration of a snf stay. He states he had HH at once time while in [place] in March. I would do that. He is aware that his is expressing concerns re her ability to manage him at home and he tells Dr. Morrison he will talk with her. PT and OT are now ordered. DCP team will continue to follow.
--- NOTE | 2019-08-22 14:18 | PM.PN.1 ---
Subjective Subjective Date Patient Seen: 08/22/19 Interval history: He is seen here in his room today to follow-up his peripheral edema/congestive heart failure, medical obesity and atrial fibrillation, anemia. He is quite disgruntled to be in the hospital but when I point out to him that if he leaves to early he is likely to have to return he begrudgingly agrees with that reasoning. Yesterday's hemoglobin was 8.9 with a normal BMP and a BNP of 1540 with CRP of 3.8. His legs are quite large and he is quite large. He says ?I just want to make some progress? and he generally has a disappointed/grumbling affect. Exam Vital Signs (past 8 hours): - 08/22/19 08:00 08/22/19 08:53 08/22/19 12:00 Temperature 97.2 F L 98 F Pulse Rate 103 H 98 H 104 H Respiratory Rate 16 20 18 Blood Pressure 124/76 96/51 L Pulse Oximetry 94 90 L Oxygen Delivery Method Nasal Cannula Oxygen Flow Rate 2 Narrative Exam Narrative: Alert and oriented x3. No apparent distress. He is in a fairly negative, anti hospital mood. He seems to be unrealistic about his abilities at home but that is yet to be defined by physical therapy. His legs are wrapped and appear quite large with more pain on the right calf than the left. His heart is irregularly irregular. There is no murmur. Lungs are clear bilaterally. Objective Labs Result Diagrams: 08/21/19 04:48 08/21/19 04:48 Assessment & Plan Assessment & Plan narrative: This is a 63-year-old male patient who presented to the emergency department with worsening shortness of breath, extremity swelling and fatigue with orthopnea and was found to be in atrial fibrillation with RVR. He reports a 40 lb weight gain in the last month. 1. Atrial fibrillation with rapid ventricular response, present on admission, active. -patient with probable chronic atrial fibrillation as the patient is not aware palpitations or rapid heartbeat. No prior EKG for comparison. -12 lead EKG finds atrial fibrillation with a ventricular rate of 131 with a normal axis without evidence of ischemia or infarct. Patient with PVCs on telemetry. -potassium is 4.3 and magnesium is 1.5, ordered 2 g of magnesium sulfate IV now. -total CK is 23, troponin is negative at 0.012 and BNP is elevated at 1540. -in the ER the patient received Cardizem 20 mg IV bolus and started on Cardizem infusion. On arrival to the ICU the patient remained tachycardic in the 130s to 160s, and was given 5 mg of metoprolol tartrate IV. -the patient has been on digoxin 62.5 mcg daily and has a subtherapeutic digoxin level of 0.6. Ordered digoxin 125 mcg daily, will recheck level. -the patient has been taking metoprolol succinate 150 mg in the morning and 50 mg at night. Ordered metoprolol succinate 100 mg twice daily. -the patient is unable to be anticoagulated related to recent history of bleeding gastric ulcers requiring transfusion of multiple units of blood while on Xarelto. -ordered echocardiogram. 2. Acute exacerbation of chronic congestive heart failure, unknown if systolic, diastolic or both, present on admission, active. -patient admitted to [facility] on 08/01/2019 for same complaint of shortness of breath with hypoxia at that time and leg swelling and underwent diuresis. -the patient denies chest pain, diminished breath sounds bibasilar, reports orthopnea and exertional dyspnea that has worsened over the last several days commensurate with increased leg edema. Patient presents with anasarca to lower abdomen, 4+ edema bilateral lower extremities. -patient has a negative troponin at less than 0.012 with an elevated proBNP of 1540. -the patient has been taking 40 mg of Lasix twice daily. He received 40 mg Lasix in the emergency department, ordered Lasix 80 mg twice daily. -follow electrolytes daily 3. Chronic kidney disease stage 3, present on admission, stable. -during hospitalization at [facility] 3 weeks ago, the patient had a creatinine of 1.6 with an EGFR of 44. The patient presents today with a BUN of 33 and creatinine 1.24. His EGFR is 59.3, his creatinine clearance is estimated to be 149.98 mL/minute. -ordered urinalysis with micro and culture as indicated. -with increased diuresis will monitor renal function. 4. COPD without exacerbation, present on admission, stable -the patient is a current smoker, he smokes 1/2 pack per day and is attempting to quit. Offered a Nicoderm patch which he declined. -patient maintaining an oxygen saturation 90-92% on room air with a respiratory rate of 18 to 22. He speaking in full sentences. -RT to consult, evaluate and treat. -continue the patient's Advair inhaler twice daily. -albuterol ipratropium inhaler twice daily and albuterol inhaler every 4 hours as needed. 5. Iron deficiency anemia, unclear if blood loss or dietary in origin, present on admission, stable. -patient has a hemoglobin of 8.0 and hematocrit of 29.9 with an MCV is 71.9 and MCH of 22.0 which is decreased compared to 3 weeks ago when he had a hemoglobin of 8.5, hematocrit of 32.1, MCV of 79.3 and MCH of 21. -iron panel obtained 3 weeks ago then an iron level of 9, TIBC 497, saturation 2%, transferrin, 355, ferritin 10.3. -patient does have a history of GI bleeding. BUN is elevated but likely secondary to diuresis. He was guaiac negative at [facility]. Ordered stool guaiac daily x2. -ordered iron 325 mg twice daily with meals. Unable to administer aspirin to enhance absorption due to history of bleeding ulcers. -will follow blood count. 6. Diabetes mellitus type 2, diet-controlled, without complication, chronic, stable. -the patient is not currently using diabetic medication. His glucose on admission is 141. Hemoglobin A1c is 6.9, 3 weeks ago was 6.1 reflecting worsening glycemic control. -ordered fingersticks a.c. and HS with correctional insulin low-dose scale. -diet: Small constant carbohydrate, requested dietitian to consult 7. Acquired hypothyroidism, chronic, stable. -TSH was assessed 3 weeks ago and found to be 0.9. -will continue current home regimen of levothyroxine 50 mcg daily 8. Super morbid obesity with a BMI of 55.2 -when the patient is a 40 lb weight gain over the last month is accounted for the patient would still have a BMI 50.33. -requested dietitian consult. 9. Obstructive sleep apnea, not using CPAP, chronic, stable. -the patient is able to moan obtain adequate oxygenation, remains appropriately responsive no evidence of hypercarbia. VTE prophylaxis: Leoncio wraps bilateral lower extremities, heparin IV fluid: Diltiazem infusion Diet: Small constant carbohydrate Code status: FULL CODE, the patient designates his Jennifer to be his surrogate decision maker. Quality VTE Deep Vein Thrombosis/Pulmonary Embolism Present on Admission: No
--- NOTE | 2019-08-22 14:18 | PC.NURSE ---
Addendum entered by Katya Begum R.N. 08/22/19 14:41: Noted during application of wrap RLE is slightly more erythemic than LLE, no increased warmth, skin is dry and intact. Doctor aware. Original Note: Assisted patient back to bed after shower, tele pads back on, WING wrap reapplied from toes to knees, bilaterally per order. Patient tolerated wraps well. Patient reports numbness and tingling in BLE, states this is normal. Pulse ox on, patient plans to nap, O2 high-80's will place NC at 1L while patient rests. Legs elevated while in chair, belongings in reach. Denies further needs at this time.
--- NOTE | 2019-08-22 15:47 | OT.IP.TRT ---
Current Diagnoses Heart failure, unspecified (08/21/19) Occupational Therapy Treatment Note M3 OT- IP Subjective and Pain Start: 08/22/19 15:46 Freq: Status: Active Protocol: Document 08/22/19 15:46 CGR (Rec: 08/22/19 15:47 CGR [email or web address]) OT- Subjective Occupational Therapy Visit Type Type Administrative Note Notes Per P.T. pt is declining all activity at this time. Will hold eval and attempt tomorrow .
--- NOTE | 2019-08-22 15:47 | PT-IP ANOTE ---
Attempted to see pt twice at 2:45pm and 3:40 pm but pt was sleeping soundly in chair. Woke him up and pt stated he does not want to do any PT today d/t fatigue and sleepiness. His O2 in room air was at 84-88% so this PT placed NC with 2LO2 on him. Notified LAYLA Aldana. Will reattempt PT in the morning
[2019-08-23 00:08] VITALS: BP 131/69; PULSE 100; RESP 20; TEMP 36.6; O2SAT 94
[2019-08-23 04:28] VITALS: BP 130/75; PULSE 95; RESP 20; TEMP 36.6; O2SAT 93
[2019-08-23 04:55] LABS: Add Manual Diff / Slide Review NO; Basophils Absolute Auto 100 /uL (0-100); Basophils Percent Auto 1.3 % (0-2); Eosinophils Absolute Auto 100 /uL (0-450); Eosinophils Percent Auto 1.4 % (2-4); Hematocrit 28.1 % (41-53); Hemoglobin 8.3 g/dL (13.5-17.5); Lymphocytes Absolute Auto 1000 /uL (1100-4500); Lymphocytes Percent Auto 13.8 % (25-40); Mean Corpuscular HGB Conc 29.5 % (30-36); Mean Corpuscular Hemoglobin 21.4 PG (26-34); Mean Corpuscular Volume 72.5 fL (80-100); Monocytes Absolute Auto 900 /uL (0-900); Monocytes Percent Auto 12.2 % (3-14); Neutrophils Absolute Auto 5100 /uL (1500-7000); Neutrophils Percent Auto 71.3 % (50-75); Platelet Count 129 X10^3/uL (150-400); Red Blood Cell Count 3.87 X10^6/uL (4.5-5.9); Red Cell Distribution Width 21.6 % (11.6-14.8); White Blood Cell Count 7.2 X10^3/uL (4.5-11.0)
[2019-08-23 05:01] LABS: BUN Creatinine Ratio 26.4 (6-22); Blood Urea Nitrogen 29 mg/dL (9-20); Calcium 8.6 mg/dL (8.4-10.2); Carbon Dioxide 39 mmol/L (22-32); Chloride 96 mmol/L (98-107); Estimated Glomerular Filt Rate > 60.0 mL/min (>60); Glucose 123 mg/dL (80-110); HEMOLYSIS < 15 (0-50); Potassium 4.3 mmol/L (3.4-5.1); Sodium 138 mmol/L (137-145)
[2019-08-23] MEDS: OXYCODONE IR 5 MG TABLET PO (05:02)
[2019-08-23 05:06] LABS: C-Reactive Protein Quant 2.5 mg/dL (<1.0)
[2019-08-23 05:09] LABS: NT-proBNP (BNP-Adult 18+) 1270 pg/mL (<125)
[2019-08-23 05:33] LABS: Anisocytosis 3+; Microcytosis 1+; Polychromasia 1+
[2019-08-23] MEDS: FUROSEMIDE 100 MG/10 ML VIAL 80 MG IV (06:02)
[2019-08-23] MEDS: SODIUM CHLORIDE 0.9% FLUSH 10 ML IV ×2 (06:03→10:17)
[2019-08-23] MEDS: PANTOPRAZOLE 40 MG TABLET PO (06:03)
[2019-08-23 07:55] VITALS: BP 120/77; PULSE 109; RESP 16; TEMP 37.1; O2SAT 94
[2019-08-23] MEDS: FLUTICASONE/SALMETEROL 250/50 60 PUFF DISKUS INH (08:30)
[2019-08-23 08:32] VITALS: PULSE 112; RESP 18; O2SAT 94
--- NOTE | 2019-08-23 09:24 | PT.IIE ---
Current Diagnoses Heart failure, unspecified (08/21/19) Surgical History (Last Updated 08/21/19 @ 02:30 by JOSE MANUEL Demarco) History of drainage of abscess (Acute) Medical History (Last Updated 08/21/19 @ 01:14 by JOSE MANUEL Demarco) Acquired hypothyroidism (Acute) Chronic kidney disease, stage 3 (Acute) Congestive heart failure (Acute) COPD (chronic obstructive pulmonary disease) (Acute) Current smoker (Acute) Diabetes mellitus type 2 in obese (Acute) Gastric ulcer (Acute) History of GI bleed (Acute) History of noncompliance with medical treatment (Acute) Iron deficiency anemia (Acute) Morbid obesity (Acute) Obstructive sleep apnea (Acute) Persistent atrial fibrillation (Acute) Physical Therapy Inpatient Evaluation/Re-Eval M1 PT/OT-IP Prior Functional Status Start: 08/22/19 15:46 Freq: NEEDED Status: Active Protocol: Document 08/23/19 10:40 CGR (Rec: 08/23/19 10:51 CGR [email or web address]) Medical Review Prior Functional Status Medical History Reviewed Yes Communication Pt is an effective verbal communicator Mobility and Gait Pt was IND or MOD I using a SPC for all mobility. 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 Social History Household Members spouse Living Arrangements House Number of Floors (Floors) Two Floors Number of Stairs To Enter/Railing? Pt has 1 step to enter then home and then stays on the main level. The have a basement that he does not need to go down to. Home Environment High Toilet,Walk in Shower Home Equipment Straight Cane,Shower Seat with Backrest,Hand Held Shower, Grab Bars Near Toilet,Grab Bars In Shower Employment Status Retired Additional Social History Comment Pt lives in [place] with his . M2 PT-IP Current Condition Start: 08/22/19 13:21 Freq: NEEDED Status: Active Protocol: Document 08/23/19 09:24 AB (Rec: 08/23/19 12:16 AB [email or web address]) Physical Therapy Current Condition Current Condition Evaluation Date 08/23/19 Treatment Diagnosis CHF; A-fib; difficulty in walking Onset Date 08/21/19 M3 PT-IP Subjective Start: 08/22/19 13:21 Freq: NEEDED Status: Active Protocol: Document 08/23/19 09:24 AB (Rec: 08/23/19 12:16 AB [email or web address]) Subjective Physical Therapy Visit Type Type Initial Evaluation Visit Start Time 09:24 Visit Stop Time 09:45 Total Visit Minutes 21 Number of PROJECT MANAGEMENT INTERN Visits 0 Physical Therapy Visit Comments Patient Comments pt is agreeable to do PT; stated that he did not do PT yesterday, not because he cannot do it but that he did not want to Therapy Pain Assessment Pain Present Pain Present Denied Pain M4 PT-IP Mobility and Gait Start: 08/22/19 13:21 Freq: NEEDED Status: Active Protocol: Document 08/23/19 09:24 AB (Rec: 08/23/19 12:16 AB [email or web address]) PT-Bed Mobility Assessment Supine to Sit Supine to Sit Standby Assistance Scooting Scooting to Edge of Bed Standby Assistance PT-Transfer Assessment Sit to and From Stand Sit to and from Stand Standby Assistance Equipment Transfer Assistive Device Gait Belt,Straight Cane Orthotic/Prosthetic Devices or Brace: No Transfers Transfer Destination Chair Transfer Technique Stand Step Pivot Transfer Ability Level of Assist Standby Assistance,1 Person Assistance,Use of Upper Extremities Comments Mobility Comments BP: 103/61 O2 sat 96% HR 109. pt completed supine to sit SBA but presents with difficulty completing task. stated that he pulls on the foot of the bed at home to sit up but unable to reach for foot of the bed in room. pt was able to sit on EOB SBA. pt completed sit to stand SBA and ambulated to the toilet using SPC SBA. demonstrated ability to sit and position and get up from the toilet using grab bar SBA. ambulated more in room using SPC ~ 35 ft SBA and cues. pt agreed to sit up on chair. positioned in chair. call light and table placed within reach. BP after mobility: 117/68 O2 sat varies from 89-92% with activity and HR went up to 123 bpm with activity. Gait Assessment Gait Gait Assistance Required: Standby Assistance Distance (Feet) 35 Able to Maintain Weight Bearing Status Yes During Gait Assistive Devices Assistive Device Gait Belt,Straight Cane Orthotic/Prosthetic Devices or Brace: No Gait Deviations General Gait Pattern Antalgic,Wide Based Gait Factors Limiting Gait Function Factors Limiting Gait Function Decreased Activity Tolerance, Decreased Sensation,Decreased Strength,Poor Balance,Poor Safety Awareness,Respiratory Distress Comments Gait Comments pls refer to mobility section for details. presents wtih antalgic waddling gait using SPC but without LOB. PT-Balance Assessment Sitting Balance and Reactions Static Sitting Balance Ability Good Dynamic Sitting Balance Ability Good Standing Balance and Reactions Static Standing Balance Ability Fair Dynamic Standing Balance Ability Fair Device Used SPC M5 PT-IP Objective Assessments Start: 08/22/19 13:21 Freq: NEEDED Status: Active Protocol: Document 08/23/19 09:24 AB (Rec: 08/23/19 12:16 AB [email or web address]) Orientation Orientation/Cognition Level of Alertness Alert Orientation Name,Place,Situation Language Function Ability Hard of Hearing Safety Awareness Decreased Safety Awareness Memory Description No Deficits Noted Gross Range of Motion Lower Extremity ROM Assessment Within Functional Limits Strength Lower Extremity Strength Assessment Within Functional Limits Coordination Assessment Gross Coordination Gross Coordination WNL Sensation Assessment Sensation Gross Sensation Right LE Impaired,Left LE Impaired Light Touch Impaired Sensation Description Numbness Comments Sensation Comments c/o anterior lower leg numbness Muscle Tone Muscle Tone WNL Yes M6 PT-IP Treatment Start: 08/22/19 13:21 Freq: NEEDED Status: Active Protocol: Document 08/23/19 09:24 AB (Rec: 08/23/19 12:16 AB [email or web address]) Physical Therapy Treatment Education Education Provided Safety M7 PT-IP Assessment and Plan Start: 08/22/19 13:21 Freq: NEEDED Status: Active Protocol: Document 08/23/19 09:24 AB (Rec: 08/23/19 12:16 AB [email or web address]) PT Summary Assessment and Plan Potential Rehabilitation Potential Good Status of Condition at Evaluation Stable Summary Impairments Pain,ROM,Strength,Balance, Coordination,Sensation,Tone, Cognition,Bed Mobility, Transfers,Gait,Activity Tolerance Assessment Summary pt requiring SBA with mobility but with decrease activity tolerance with decrease in O2 sat to 89% with activity. HR also increased to 123 bpm. pt will likely progress during hospital stay and pt stated that his spouse can assist him . pt plans to go home when medically stable. Goals Bed Mobility Goal Independent Transfer Goal Independent,Cane Gait Goal Independent,Cane Gait Distance 200 Days to Meet Goals 5 Frequency of Treatment Frequency Of Treatment Once a Day Treatment Plan Physical Therapy Treatment Plan Bed Mobility Training,Transfer Training,Gait Training, Therapeutic Exercise,Balance Retraining,Discharge Planning, Hot or Cold Pack,Neuromuscular Re-ed Recommendations To Nursing Amount of Assist Needed 1 Person Assist Discharge Recommendations PT Discharge Recommendations Home with Assistance, Outpatient PT Transportation Needs at Discharge Private Vehicle
--- NOTE | 2019-08-23 09:45 | OT.IP.EVAL ---
Current Diagnoses Heart failure, unspecified (08/21/19) Past Medical History (Last Updated 08/21/19 @ 01:14 by JOSE MANUEL Demarco) Acquired hypothyroidism (Acute) Chronic kidney disease, stage 3 (Acute) Congestive heart failure (Acute) COPD (chronic obstructive pulmonary disease) (Acute) Current smoker (Acute) Diabetes mellitus type 2 in obese (Acute) Gastric ulcer (Acute) History of GI bleed (Acute) History of noncompliance with medical treatment (Acute) Iron deficiency anemia (Acute) Morbid obesity (Acute) Obstructive sleep apnea (Acute) Persistent atrial fibrillation (Acute) Surgical History (Last Updated 08/21/19 @ 02:30 by JOSE MANUEL Demarco) History of drainage of abscess (Acute) Occupational Therapy Inpatient Evaluation/Re-Eval M1 PT/OT-IP Prior Functional Status Start: 08/22/19 15:46 Freq: NEEDED Status: Active Protocol: Document 08/23/19 10:40 CGR (Rec: 08/23/19 10:51 CGR [email or web address]) Medical Review Prior Functional Status Medical History Reviewed Yes Communication Pt is an effective verbal communicator Mobility and Gait Pt was IND or MOD I using a SPC for all mobility. 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 Social History Household Members spouse Living Arrangements House Number of Floors (Floors) Two Floors Number of Stairs To Enter/Railing? Pt has 1 step to enter then home and then stays on the main level. The have a basement that he does not need to go down to. Home Environment High Toilet,Walk in Shower Home Equipment Straight Cane,Shower Seat with Backrest,Hand Held Shower, Grab Bars Near Toilet,Grab Bars In Shower Employment Status Retired Additional Social History Comment Pt lives in [place] with his . M2 OT-IP Current Condition Start: 08/22/19 15:46 Freq: Status: Active Protocol: Document 08/23/19 10:40 CGR (Rec: 08/23/19 10:51 CGR [email or web address]) Occupational Therapy Current Condition Current Condition Evaluation Date 08/23/19 Treatment Diagnosis CHF exacerbation, Afib with RVR and BLE swelling Diagnosis Onset Date 08/22/19 M3 OT- IP Subjective and Pain Start: 08/22/19 15:46 Freq: Status: Active Protocol: Document 08/23/19 10:40 CGR (Rec: 08/23/19 10:51 CGR [email or web address]) OT- Subjective Occupational Therapy Visit Type Type Initial Evaluation Visit Start Time 09:25 Visit Stop Time 09:45 Total Visit Minutes 20 Notes Co-eval with P.T. OT Pain Assessment Pain When Pain Assessed During Mobility Pain Present Pain Present Pain Reported Location Bilateral Lower Leg Scale Used reprots pain to BLE but did not rate Management Techniques Modification of Treatment,Re- positioning M4 OT- IP ADL's Start: 08/22/19 15:46 Freq: Status: Active Protocol: Document 08/23/19 10:40 CGR (Rec: 08/23/19 10:51 CGR [email or web address]) OT [id number] Comments OT Self-Feeding Comments Not meal time OT ADL-Grooming Comments OT Grooming Comments Pt declined to perform OT ADL-Oral Care Comments Oral Care Comments Pt declined to perform OT ADL-Dressing Comments OT Dressing Comments Pt declined to perform OT ADL-Toileting General Evaluation Toileting Ability Independent Comments OT Toileting Comments simulated seated on toielt OT ADL-Bathing Comments OT Bathing Comments not performed M5 OT- IP IADL's Start: 08/22/19 15:46 Freq: Status: Active Protocol: Document 08/23/19 10:40 CGR (Rec: 08/23/19 10:51 CGR [email or web address]) OT-Instrumental Activities of Daily Living Deficits IADL Deficits Identified No Deficits Home Safety Awareness Awareness of Need for Assistance at Home Good Awareness Ability to Problem Solve Emergency Able to Problem Solve Situations Medication Management Medication Management No Deficits Identified Money Management Money Management No Deficits Identified Meal Preparation Meal Preparation Caregiver Provides Assist Agronomy Internship Agronomy Internship Caregiver Provides Assist Driving Driving 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 OT- IP Functional Cognition Start: 08/22/19 15:46 Freq: Status: Active Protocol: Document 08/23/19 10:40 CGR (Rec: 08/23/19 10:51 CGR [email or web address]) Cognitive Factors Limiting Selfcare Function Cognitive Ability Level of Alertness Alert Patient Orientation Name,Age,Birthday,Month,Date, Year,Day of Week,Place, Situation Attention Span Ability Capable of Focused Attention, Capable of Sustained Attention Ability to Follow Commands Able to Follow Multi-Step Commands Memory Description No Deficits Noted Safety Awareness No Deficits Noted OT- Vision and Hearing OT- Hearing Assessment OT- Hearing Assessment WFL OT- Vision Assessment Visual Acuity Glasses For Reading Visual Attentiveness WFL Occular Pursuits WFL Visual Convergence WFL M7 OT- IP Mobility and Balance Start: 08/22/19 15:46 Freq: Status: Active Protocol: Document 08/23/19 10:40 CGR (Rec: 08/23/19 10:51 CGR [email or web address]) OT- Bed Mobility Assessment Rolling Type of Rolling Roll to Right Level of Assistance Standby Assistance Supine to Sit Supine to Sit Assist Standby Assistance Scooting Scooting to Edge of Bed Standby Assistance OT-Transfer Assessment Sit to and From Stand Sit to and from Stand Standby Assistance Transfers Transfer Ability Standby Assistance Technique Transfer Destination Bed,Chair Transfer Technique Stand Step Pivot Devices Transfer Assistive Devices Straight Cane OT- Gait Assessment Gait Gait Assistance Required: Standby Assistance Assistive Devices Assistive Device Straight Cane OT- Balance Assessment Sitting Balance and Reactions Static Sitting Balance Ability Good Dynamic Sitting Balance Ability Fair M8 OT- IP Objective Assessments Start: 08/22/19 15:46 Freq: Status: Active Protocol: Document 08/23/19 10:40 CGR (Rec: 08/23/19 10:51 CGR [email or web address]) OT Gross Range of Motion Upper Extremity Range of Motion Assessment Within Functional Limits OT Strength Upper Extremity Strength Assessment Within Functional Limits Comments Strength Comments 5/5 OT- Coordination Assessment Upper Extremity Finger to Nose Test Within Functional Limits Finger Tapping Test Within Functional Limits OT-Muscle Tone Assessment Muscle Tone WNL Yes OT Sensation Assessment Comments Summary Comments Pt states decreased sensation to BLE. Edema Edema Present Edema Comments BLE M9 OT- IP Assessment and Plan Start: 08/22/19 15:46 Freq: Status: Active Protocol: Document 08/23/19 10:40 CGR (Rec: 08/23/19 10:51 CGR [email or web address]) OT Summary Assessment and Plan Potential Rehabilitation Potential Excellent Analytic Complexity at Evaluation Low Summary OT Impairments Pain,Functional Mobility, Dressing,Bathing,Shower Transfers,Activity Tolerance Progress Towards Goals Progressing Toward Goals Assessment Summary Pt presents as a low complexity evaluation after admission for CHF exacerbation , A fib with RVR and weight gain. Pt is at or close to his baseline but may benefit from 1 more OT session to address bathing. Pt is likely safe for discharge home with family support. Goals Dressing Goal Independent Bathing Goal Independent Shower Transfer Goal Independent Days to Meet Goals 1 Frequency of Treatment Frequency Of Treatment Once a Day Treatment Plan OT Treatment Plan ADL Training,Functional Mobility,Patient/Family Education,Discharge Planning Other Treatment Recommendations and Next shower Treatment Focus Discharge Recommendations OT Discharge Recommendations Home with Assistance Transportation Needs at Discharge Private Vehicle
[2019-08-23] MEDS: METOPROLOL ER 50 MG TABLET 100 MG PO (10:16)
[2019-08-23] MEDS: LEVOTHYROXINE 50 MCG TABLET PO (10:16)
[2019-08-23] MEDS: MAGNESIUM OXIDE 400 MG TABLET PO (10:16)
[2019-08-23] MEDS: DOCUSATE 100 MG CAPSULE PO (10:16)
[2019-08-23] MEDS: FERROUS SULFATE 325 MG TABLET PO (10:17)
[2019-08-23 10:18] VITALS: PULSE 104
[2019-08-23] MEDS: DIGOXIN 0.125 MG TABLET PO (10:18)
[2019-08-23] MEDS: HEPARIN 5,000 UNIT/ML VIAL 5000 UNIT SUBCUT (10:18)
[2019-08-23] MEDS: dilTIAZem CD 240 MG CAP PO (10:18)
--- NOTE | 2019-08-23 10:33 | PM.DS.1 ---
History of Present Illness History of Present Illness Date Patient Seen: 08/23/19 Time Patient Seen: 10:33 Chief complaint: LEFT LEG INFECTION BOT LEGS ARE SWELLING Narrative: As per JOSE MANUEL Demarco: Mr. Patrick Ibrahim is a 63-year-old male with a past medical history significant for morbid obesity, congestive heart failure, atrial fibrillation not on anticoagulation related to bleeding ulcers (02/2019), hypertension, non insulin-dependent diabetes mellitus type 2, COPD, obstructive sleep apnea not using CPAP, and chronic kidney disease stage III who presents to the ER with complaints of worsening fatigue and shortness of breath extremity swelling over the last several days. The patient has associated complaints of orthopnea, bilateral foot pain and reports 40 lb weight gain over the last month. He states he becomes winded going up stairs and has to stop and rest. The patient was admitted to [facility] on July 31 for similar complaints following the patient traveling and for got to take his medications with him for 10 days. The patient states he has been back on his medications for 3 weeks and continues to have increasing swelling and shortness of breath both of which have gotten worse since his recent hospitalization. Patient does endorse eating approximately 2 trace of ice daily. He is diabetic and does daily fingersticks reports blood sugars are in the low 100s. He denies complaints fevers or chills, headaches or dizziness. He has had no nasal congestion or sore throat. Denies known COVID-19 exposures. He states he has not had any chest pain and no palpitations and has not of where of his atrial fibrillation. He does have shortness of breath as noted above and has a chronic cough productive for white sputum. Denies complaints abdominal pain or heartburn, nausea vomiting, diarrhea or constipation. He states his last bowel movement was yesterday morning. He he denies melena or hematochezia. Patient reports nocturia 3-4 times nightly and if he takes his diuretic late he reports nocturia 7-8 times nightly. Upon arrival to the ER the patient's temperature 99.6?, heart rate of 143, blood pressure 159/84, respirations of 32 with a pulse ox of 96 on room air. A chest x-ray obtained which finds enlarged heart with mild vascular congestion. Twelve lead EKG finds atrial fibrillation with a ventricular rate of 131 with a normal axis and no evidence of ischemia or infarct. On laboratory analysis the patient has white count of 8.0, hemoglobin 9.2, hematocrit of 29.9 and platelets 121, MCV is 71.9, MCH is 22.0 and RDW is 21.7. He has a PT of 16.4 and an INR 1.4. On chemistries is electrolytes are within normal range with a potassium of 4.3 and magnesium of 1.5. He has a BUN of 33 and creatinine 1.24. His carbon dioxide level is 36. His liver functions are all within normal range and and has about albumin of 3.6. The patient is on digoxin and has a digit level of 0.6. He has a total CK of 23 with a troponin of less than 0.012 and a BNP elevated at 15 40. His lactic acid of 1.4 and a CRP of 3.8. In the ER the patient received Lasix 40 mg IV x1 and was started on diltiazem with an initial bolus of 20 mg followed by infusion. Patient also received oxycodone 5 mg for pain. The patient is not anticoagulated related to history of bleeding ulcers. The patient is admitted to the hospital for atrial fibrillation with rapid ventricular response and exacerbation of chronic congestive heart failure. Discharge Providers Provider Date of admission: 08/21/19 00:13 Discharge Date: 08/23/19 Consults: 08/21/19 00:14 Consult to Dietitian, Adult Routine Comment: Reason For Exam: Diabetic, morbid obesity, exacerbation CHF Consult to Discharge Planning Routine Comment: 08/21/19 00:19 Consult to Respiratory Therapy Evaluate & Treat Comment: Exacerbation of CHF Physician Instructions: Evaluate and treat 08/22/19 11:26 Consult to Occupational Therapy Evaluate & Treat Comment: Physician Instructions: Evaluate and treat Consult to Physical Therapy Evaluate & Treat Comment: Physician Instructions: Evaluate and Treat Discharge provider: Frantz Wilson DO Summary Hospital Course Discharge Diagnosis: Please see hospital course by problem list noted below. Hospital Course: This is a 63-year-old male patient who presented to the emergency department with worsening shortness of breath, extremity swelling and fatigue with orthopnea and was found to be in atrial fibrillation with RVR. He reported a 40 lb weight gain in the last month. His symptoms improved with extensive diuresis. His LE edema still present but there is likely a component of chronic venous insufficiency as well. 1. Atrial fibrillation with rapid ventricular response, present on admission, active. -12 lead EKG - atrial fibrillation with a ventricular rate of 131 with a normal axis without evidence of ischemia or infarct. Patient with PVCs on telemetry. -potassium is 4.3 and magnesium is 1.5 on admission. Magnesium was repleted and managed to keep K>4 and Mg >2. -in the ER the patient received Cardizem 20 mg IV bolus and started on Cardizem infusion. On arrival to the ICU the patient remained tachycardic in the 130s to 160s, and was given 5 mg of metoprolol tartrate IV. patient was continued on digoxin which was slightly subtherapeutic on admission. Furhter improvement with resumption of home metoprolol as well. Patient was diuresed siginificantly as noted below. -the patient has been taking metoprolol succinate 150 mg in the morning and 50 mg at night. Ordered metoprolol succinate 100 mg twice daily. -the patient is unable to be anticoagulated related to recent history of bleeding gastric ulcers requiring transfusion of multiple units of blood while on Xarelto. 2. Acute exacerbation of chronic congestive heart failure, diastolic, present on admission, improved. -patient admitted to [facility] on 08/01/2019 for same complaint of shortness of breath with hypoxia at that time and leg swelling and underwent diuresis. [facility] showing an EF of 60-65%. Repeat TTE was not indicated. -Patient reported orthopnea and dyspnea on exertion, in addition to LE swelling and abdominal swelling. Improved with 3L of net diuresis and will resume torsemide as an outpatient. -patient had a negative troponin at less than 0.012 with an elevated proBNP of 1540. -He received 40 mg IV Lasix in the emergency department, ordered Lasix 80 mg twice daily while admitted. Net negative 3L as discussed above. Okay to resume home torsemide and follow up with PMD and food service cashier as an outpatient for further management. 3. Chronic kidney disease stage 3, present on admission, stable. -during hospitalization at [facility] 3 weeks ago, the patient had a creatinine of 1.6 with an EGFR of 44. The patient presented with a BUN of 33 and creatinine 1.24 which improved to 1.1 upon discharge after diuresis. 4. COPD without exacerbation, present on admission, stable -the patient is a current smoker, he smokes 1/2 pack per day and is attempting to quit. Offered a Nicoderm patch which he declined. -Dyspnea on exertion improved with diuresis as noted above. -this does not represent COPD exacerbation. 5. Iron deficiency anemia, unclear if blood loss or dietary in origin, present on admission, stable. -patient has a hemoglobin of 8.0 and hematocrit of 29.9 with an MCV is 71.9 and MCH of 22.0 which is decreased compared to 3 weeks ago when he had a hemoglobin of 8.5, hematocrit of 32.1, MCV of 79.3 and MCH of 21. -iron panel obtained 3 weeks ago then an iron level of 9, TIBC 497, saturation 2%, transferrin, 355, ferritin 10.3. -patient does have a history of GI bleeding. BUN is elevated but likely secondary to diuresis. He was guaiac negative at [facility]. -Continue oral iron as an outpatient. Unable to administer aspirin to enhance absorption due to history of bleeding ulcers. - Recommend PMD follow up for further monitoring of iron deficiency anemia and ensure age appropriate screening. 6. Diabetes mellitus type 2, diet-controlled, without complication, chronic, stable. -the patient is not currently using diabetic medication. His glucose on admission is 141. Hemoglobin A1c is 6.9, 3 weeks ago was 6.1 reflecting worsening glycemic control. -ordered fingersticks a.c. and HS with correctional insulin low-dose scale. -diet: Small constant carbohydrate, requested dietitian to consult 7. Acquired hypothyroidism, chronic, stable. -TSH was assessed 3 weeks ago and found to be 0.9. -will continue current home regimen of levothyroxine 50 mcg daily 8. Super morbid obesity with a BMI of 55.2 -when the patient is a 40 lb weight gain over the last month is accounted for the patient would still have a BMI 50.33. The patient is more prone to complications and makes differentiating shortness of breath etiologies difficult. He is at increased risk of complications from his hospitalization and obesity has likely contributed to his atrial fibrillation, diastolic heart failure and other medical issues including DM and SABRINA. -requested dietitian consult. 9. Obstructive sleep apnea, not using CPAP, chronic, stable. -no changes were made, recommended sleep study and to use CPAP machine. Time Spent with Patient Time spent: Greater than 30 minutes Exam Vital Signs (past 8 hours): - 08/23/19 04:28 08/23/19 07:55 08/23/19 08:32 Temperature 97.8 F 98.7 F Pulse Rate 95 H 109 H 112 H Respiratory Rate 20 16 18 Blood Pressure 130/75 120/77 Pulse Oximetry 93 94 94 08/23/19 10:18 Temperature Pulse Rate 104 H Respiratory Rate Blood Pressure Pulse Oximetry Oxygen Delivery Method Room Air Oxygen Flow Rate 0 Narrative Exam Narrative: GENERAL APPEARANCE: well developed, morbidly obese male, BMI 55.2, in no acute distress HEENT: Normocephalic, PERRLA, conjunctiva clear, EOMs intact without nystagmus, no sinus tenderness to percussion, no rhinorrhea, mucous membranes are moist and pink without lesions or exudate. NECK/THYROID: neck supple, no JVD, no carotid bruit, no thyromegaly, trachea midline. LYMPH NODES: no cervical or supraclavicular lymphadenopathy. SKIN: [place], warm and dry, no visible lesions, rashes, ulcerations or petechiae. There are chronic venous stasis changes of his bilateral lower extremities. HEART: regular rate and rhythm, S1-S2, no murmur, no rubs or gallops, anasarca to lower abdomen, 4+ edema BLE. LUNGS: Breath sounds with expiratory wheezing in all kaufman, no coarseness or crackles, no cough present, speaking in full sentences. CHEST: Symmetrical movement, no accessory muscle use, good tidal volume. ABDOMEN: Soft, no distention, no abdominal tenderness, no guarding or peritoneal signs, no organomegaly though exam limited due to body habitus, active bowel tones. EXTREMITIES: moves all extremities, strength is 4/5 and symmetrical, no deformities or joint effusions. NEUROLOGIC: AAO x3, cranial nerves II-XII grossly intact, sensation intact to light touch, hearing grossly normal to speech. PSYCH: Fair to poor eye contact, limited insight, tangential thought, cooperative, flat affect with stable behavior Objective Labs Result Diagrams: 08/23/19 04:30 08/23/19 04:30 Labs: Laboratory Results - last 24 hr 08/23/19 08/23/19 08/23/19 04:30 04:30 04:30 WBC 7.2 RBC 3.87 L Hgb 8.3 L Hct 28.1 L MCV 72.5 L MCH 21.4 L MCHC 29.5 L RDW 21.6 H Plt Count 129 L Neut % (Auto) 71.3 Lymph % (Auto) 13.8 L [place] % (Auto) 12.2 Eos % (Auto) 1.4 L Baso % (Auto) 1.3 Neut # (Auto) 5100 Lymph # (Auto) 1000 L [place] # (Auto) 900 Eos # (Auto) 100 Baso # (Auto) 100 RBC Morphology See below Polychromasia 1+ H Anisocytosis 3+ H Microcytosis 1+ H Sodium 138 Potassium 4.3 Chloride 96 L Carbon Dioxide 39 H BUN 29 H Creatinine 1.10 Estimated GFR > 60.0 BUN/Creatinine Ratio 26.4 H Glucose 123 H Calcium 8.6 C-Reactive Protein NT-Pro-B Natriuret Pep 1270 H 08/23/19 04:30 WBC RBC Hgb Hct MCV MCH MCHC RDW Plt Count Neut % (Auto) Lymph % (Auto) [place] % (Auto) Eos % (Auto) Baso % (Auto) Neut # (Auto) Lymph # (Auto) [place] # (Auto) Eos # (Auto) Baso # (Auto) RBC Morphology Polychromasia Anisocytosis Microcytosis Sodium Potassium Chloride Carbon Dioxide BUN Creatinine Estimated GFR BUN/Creatinine Ratio Glucose Calcium C-Reactive Protein 2.5 H NT-Pro-B Natriuret Pep Discharge Plan Discharge Plan Patient Disposition: Home Discharge comment: You were admitted to the hospital with an exacerbation of your heart failure. You had a large amount of fluid removed. Please continue to take your diuretic medication. Please schedule follow up with your primary care provider next week and with your food service cashier preferrably in the next month. Continue to elevate your legs when sitting to help with drainage and watch the amount of water you take in. Please continue to weigh yourself daily as well as medications may need to be adjusted. Discharge orders & Medications Prescriptions: New ferrous sulfate 325 mg (65 mg iron) Tablet 325 mg PO DAILY 30 Days Qty: 30 RF: 0 oxycodone 5 mg Tablet 5 mg PO Q4HR PRN (Reason: Pain, Moderate (4-6)) 7 Days Qty: 15 RF: 0 Continued fluticasone propion-salmeterol [Advair Diskus] 250-50 mcg/dose Blister With Device 1 inh INHALATION BID RF: 0 metoprolol succinate 100 mg Tablet Extended Release 24 Hr 150 mg PO DAILY RF: 0 levothyroxine 50 mcg Tablet 50 mcg PO DAILY RF: 0 pantoprazole 40 mg Tablet,Delayed Release (Dr/Ec) 40 mg PO DAILY RF: 0 digoxin 125 mcg (0.125 mg) Tablet 62.5 mcg PO DAILY RF: 0 diltiazem HCl 240 mg Tablet Extended Release 24 Hr 240 mg PO DAILY RF: 0 torsemide 20 mg tablet 20 mg PO BID RF: 0 metoprolol succinate 50 mg Tablet Extended Release 24 Hr 50 mg PO BEDTIME RF: 0 Discharge Health Status Health Concerns: Heart failure Diet/Activity/Treatments Diet: Diet as Tolerated, Low-sodium and Low-cholesterol Diet comment: <1.5 L of fluid intake Activity: As tolerated Visit Report/Discharge Packet Instructions: DI for Heart Failure, DI for Prescription Opioid Use, How to Keep Track of Your Weight When You Have Heart Failure, Why It Is Important to Quit Smoking If You Have Heart Failure, Oxycodone, DI for Heart Failure Exacerbations Visit Report Forms: Patient Portal/API, Stroke Signs & Symptoms Discharges patient from system. Discharge Date/Time: 08/23/19 12:22 Quality VTE Deep Vein Thrombosis/Pulmonary Embolism Present on Admission: No
--- NOTE | 2019-08-23 10:57 | CM.DPC ---
DCP Cont: Discussed patient at team rounds. Patient is to be discharged home today. He does not want custodial. Mentioned home health, but had to ensure that he is home bound. Let him know that if he is driving to the store, he would not be eligible for home health. Patient indicated, it's hard for him to get out now. He has lower extremity edema. Patient indicated that he has used home health before when he was in [facility], and has no preference on agencies. [facility] is on the calendar for this week. Contacted Leeanna at [facility], and stated, they should be able to come out by Sunday. Asked for nursing to assess lower extremity, as well as P.T. Had to ask patient for his physical address, which was not on face sheet. Confirmed that his primary care provider is at the [facility]. Faxed over face sheet, face to face, orders, H&P, as well as orders, to [facility]. Included his physical address on the face sheet. Patient signed IMM as well. P: Patient is to be discharged home today with [facility] nursing, and P.T. Gabriela Guevara RN/Reception Manager
--- NOTE | 2019-08-23 11:49 | PC.NURSE ---
Addendum entered by Simran Talbot R.N. 08/23/19 12:21: Wheeled out to private vehicle by nursing staff. Original Note: Discharge: IV dc'd intact. Tele dc'd. Reviewed all d/c info thoroughly with patient including color-coded CHF guidelines, education info, med list, activity (especially daily weights and keeping BLE's elevated above heart level as much as possible), diet, fluid restriction of 1.5L Q24H. Also, instructed to schedule f/u with PCP and mechanic senior as per Dr Wilson's recommendation (patient states he will call to schedule). New scripts for Iron and Oxycodone sent to [facility], patient made aware of the same. Patient verbalized understanding of d/c instructions and stated no further questions. Leg wraps removed per patient request (and with ok from MD), encouraged to wear compression stockings at home when OOB if tolerable. Sent with WING wraps so he can use those if he needs to. Arrangements have been made for HH. All personal belongings collected and ready to send with patient at discharge.
== END 2019-08-23 12:22 | disposition home or self-care (01) | DRG 291 ==
LOC: ED 23:41 → ICU 08-21 07:31 → AC 08-23 10:33 → ICU 08-26 07:56
PROVIDERS: Family Medicine; Internal Medicine; Admitting Provider Nurse Practitioner Adult Health; Emergency Provider Emergency Medicine; Referring Provider Emergency Medicine; Visit Provider Nurse Practitioner Adult Health
DX: I13.0 Hypertensive heart and chronic kidney disease with heart failure and stage 1 through stage 4 chronic kidney disease, or unspecified chronic kidney disease (principal); G93.41 Metabolic encephalopathy; I50.33 Acute on chronic diastolic (congestive) heart failure; J96.01 Acute respiratory failure with hypoxia; I48.20 Chronic atrial fibrillation, unspecified; Z68.43 Body mass index [BMI] 50.0-59.9, adult; N18.3 Chronic kidney disease, stage 3 (moderate); I27.81 Cor pulmonale (chronic); E11.22 Type 2 diabetes mellitus with diabetic chronic kidney disease; E66.01 Morbid (severe) obesity due to excess calories; J44.9 Chronic obstructive pulmonary disease, unspecified; E03.9 Hypothyroidism, unspecified; D50.9 Iron deficiency anemia, unspecified; R60.1 Generalized edema; G47.33 Obstructive sleep apnea (adult) (pediatric); Z87.891 Personal history of nicotine dependence; Z03.818 Encounter for observation for suspected exposure to other biological agents ruled out
CPT/HCPCS: 36415; 36600; 71045; 80048; 80053; 80162; 81001; 81003; 82550; 82728; 82805; 82962; 83036; 83605; 83690; 83735; 83880; 84484; 85025; 85610; 86140; 87040; 87635; 93005; 94640; 94762; 96365; 96375; 97161; 97165; 99284; C9113; J1644; J1940

== ENCOUNTER 2020-10-05 13:56 | Emergency (ER) | payer MEDICARE, OTHER, SELFPAY ==
[2019-08-21 01:12] VITALS: BMI 55.1
[2020-10-05 14:04] VITALS: BP 198/99; PULSE 115; RESP 22; TEMP 36.6; O2SAT 96
--- NOTE | 2020-10-05 14:22 | ED.GENADULT ---
HPI - General Adult General Chief complaint: Fever Stated complaint: golf ball on jaw, really bad infection Time Seen by Provider: 10/05/20 14:22 Source: patient Mode of arrival: Ambulatory History of Present Illness HPI narrative: Patient is a 64-year-old male. States that he broke a tooth in his left upper jaw couple weeks ago. Over the past couple days he has noticed some swelling and redness to the left side of his face. He had chills today. No problems swallowing. Has had some discomfort in the area below his left eye. No vision changes. No problems swallowing. No problems breathing. States that he tried to drain what he thought was an abscess on his own. He was able to get a small amount out but the symptoms have persisted. Related Data Home Medications Medication Instructions Recorded Confirmed digoxin 125 mcg (0.125 mg) tablet 62.5 mcg PO DAILY 08/20/19 08/21/19 diltiazem HCl 240 mg 240 mg PO DAILY 08/20/19 08/20/19 tablet,extended release 24 hr fluticasone 250 mcg-salmeterol 50 1 inh INHALATION BID 08/20/19 08/20/19 mcg/dose blistr powdr for inhalation (Advair Diskus) levothyroxine 50 mcg tablet 50 mcg PO DAILY 08/20/19 08/20/19 metoprolol succinate 100 mg 150 mg PO DAILY 08/20/19 08/21/19 tablet,extended release 24 hr pantoprazole 40 mg tablet,delayed 40 mg PO DAILY 08/20/19 08/20/19 release metoprolol succinate 50 mg 50 mg PO BEDTIME 08/21/19 08/21/19 tablet,extended release 24 hr torsemide 20 mg tablet 20 mg PO BID 08/21/19 08/21/19 Previous Rx's Medication Instructions Recorded chlorhexidine gluconate 0.12 % 15 ml BUCCAL BID 10 Days #473 ml 10/05/20 mouthwash (Peridex) clindamycin HCl 300 mg capsule 300 mg PO QID 10 Days #40 cap 10/05/20 Allergies Allergy/AdvReac Type Severity Reaction Status Date / Time No Known Drug Allergies Allergy Verified 08/20/19 22:26 Review of Systems Constitutional Constitutional: Reports system reviewed and no additional complaints, except as documented Eyes Eyes: Reports as per HPI ENT Ears, Nose, Mouth, and Throat: Reports system reviewed and no additional complaints, except as documented Cardiovascular Cardiovascular: Reports system reviewed and no additional complaints, except as documented Respiratory Respiratory: Reports as per HPI Gastrointestinal Gastrointestinal: Reports system reviewed and no additional complaints, except as documented Integumentary/Breasts Skin/Breast: Reports as per HPI Hematologic/Lymphatic On Anticoagulants: No Allergic/Immunologic Allergic/Immunologic: Reports system reviewed and no additional complaints, except as documented Patient History Medical History Acquired hypothyroidism Chronic kidney disease, stage 3 Congestive heart failure COPD (chronic obstructive pulmonary disease) Current smoker Diabetes mellitus type 2 in obese Gastric ulcer History of GI bleed History of noncompliance with medical treatment Iron deficiency anemia Morbid obesity Obstructive sleep apnea Persistent atrial fibrillation Surgical History (Updated 08/21/19 @ 02:30 by JOSE MANUEL Demarco) History of drainage of abscess Social History household members: spouse Smoking Status: Former smoker alcohol intake: former Smoking Status: Former smoker tobacco type: cigarettes Substance Use Type: does not use Exam Initial Vital Signs Initial Vital Signs: Vital Signs Temperature 97.9 F 10/05/20 14:04 Pulse Rate 115 H 10/05/20 14:04 Respiratory Rate 22 10/05/20 14:04 Blood Pressure 198/99 H 10/05/20 14:04 Pulse Oximetry 96 10/05/20 14:04 Const General: cooperative and comfortable HENMT Ears: hearing grossly normal bilaterally Nose: external nose normal Face and sinus: no crepitus, erythema (Left maxilla area), edema (Left maxilla area), no fluctuance, no lacerations, no maxillary instability and other Mouth: oral mucosae normal, lip normal, tongue normal and other (No abscess noted) Teeth and gingiva: poor dentition Throat: posterior oropharynx normal Eyes General: appearance normal, both eyes and all related structures Neck Lymphatic: No lymphadenopathy Resp Effort & Inspection: normal respiratory effort Skin Other: Redness over the left zygomatic arch/maxilla area. Neuro General: patient alert, patient awake and moves all extremities Extrem General: normal to inspection Course Orders Ordered: ED Orders 10/05/20 14:26 Complete Blood Count AUTO DIFF Stat Comprehensive Metabolic Panel Stat Lactate (Lactic Acid) Stat Lipase Stat Procalcitonin Stat 10/05/20 14:32 Blood Culture Stat 10/05/20 14:51 CT facial bones w con Stat EKG-12 Lead Stat 10/05/20 19:31 Urine Microscopic Stat Dexamethasone (Dexamethasone 4 Mg Tablet) 12 mg PO NOW ONE Stop: 10/05/20 19:40 Discontinued Medications Sodium Chloride (Normal Saline 0.9%) 1,000 mls @ 1,000 mls/hr IV BOLUS ONE Stop: 10/05/20 15:09 Last Infusion: 10/05/20 16:19 Dose: 0 mls/hr Documented by: Admin: 10/05/20 14:34 Dose: 1,000 mls/hr Documented by: TIN Clindamycin Phosphate (Cleocin) 900 mg in 50 mls @ 50 mls/hr IV NOW ONE Stop: 10/05/20 15:22 Last Infusion: 10/05/20 15:45 Dose: 0 mls/hr Documented by: Admin: 10/05/20 14:34 Dose: 50 mls/hr Documented by: TIN Vital Signs Vital signs: Vital Signs - 8 hr 10/05/20 14:04 Temperature 97.9 F Pulse Rate 115 H Respiratory Rate 22 Blood Pressure 198/99 H Pulse Oximetry 96 Medical Decision Making Lab Data Lab results reviewed: Yes I reviewed the patient's lab results. Result diagrams: 10/05/20 14:26 10/05/20 14:26 Labs: Lab Results 10/05/20 10/05/20 10/05/20 Range/Units 14:26 14:26 14:26 WBC 10.3 (4.5-11.0) X10^3/uL RBC 5.46 (4.5-5.9) X10^6/uL Hgb 14.7 (13.5-17.5) g/dL Hct 44.9 (41-53) % MCV 82.2 (80-100) fL MCH 26.9 (26-34) PG MCHC 32.7 (30-36) % RDW 17.5 H (11.6-14.8) % Plt Count 114 L (150-400) X10^3/uL Neut % (Auto) 79.6 H (50-75) % Lymph % (Auto) 6.9 L (25-40) % Bracken % (Auto) 12.1 (3-14) % Eos % (Auto) 0.7 L (2-4) % Baso % (Auto) 0.7 (0-2) % Neut # (Auto) 8200 H (8160-1966) /uL Lymph # (Auto) 700 L (3513-8799) /uL Bracken # (Auto) 1200 H (0-900) /uL Eos # (Auto) 100 (0-450) /uL Baso # (Auto) 100 (0-100) /uL Sodium 135 L (137-145) mmol/L Potassium 4.0 (3.4-5.1) mmol/L Chloride 100 (98-107) mmol/L Carbon Dioxide 28 (22-32) mmol/L BUN 38 H (9-20) mg/dL Creatinine 0.90 (0.66-1.25) mg/dL Estimated GFR > 60.0 (>60) mL/min BUN/Creatinine Ratio 42.2 H (6-22) Glucose 135 H (80-110) mg/dL Lactate 1.3 (0.7-2.1) mmol/L Calcium 9.2 (8.4-10.2) mg/dL Total Bilirubin 1.3 (0.2-1.3) mg/dL AST 21 (17-59) IU/L ALT 11 (<50) IU/L Alkaline Phosphatase 122 (38-126) U/L Total Protein 8.2 (6.3-8.2) g/dL Albumin 4.2 (3.5-5.0) g/dL Globulin 4.0 (1.7-4.1) g/dL Albumin/Globulin Ratio 1.1 (1.0-2.8) Lipase 219 (23-300) U/L Procalcitonin 0.09 (<0.5) ng/mL Urine Dip Bedside Urine Glucose Negative Bedside Urine Bilirubin - Negative Bedside Urine Ketone - Negative Urine Specific [place] 1.010 Bedside Urine Occult Blood +/- Bedside Urine pH 6.0 Bedside Urine Protein +/- 15 Bedside Urine Urobilinogen - Negative Bedside Urine Nitrite - Negative Bedside Urine Leukocytes - Negative Esterase Point of care testing: Urine Dip Bedside Urine Glucose Negative Bedside Urine Bilirubin - Negative Bedside Urine Ketone - Negative Urine Specific [place] 1.010 Bedside Urine Occult Blood +/- Bedside Urine pH 6.0 Bedside Urine Protein +/- 15 Bedside Urine Urobilinogen - Negative Bedside Urine Nitrite - Negative Bedside Urine Leukocytes - Negative Esterase Imaging Data CT scan face: Radiologist's Impression: [address] [id number] Scan ReportSigned Patient: Patrick Ibrahim WMR#: [id number]: 8Acct:[id number]/Sex: 64 / MDate of Service: 10/05/20Loc: EDAccession Number: [id number] Procedure: CT facial bones w con Ordering Provider: Patrick Houser D.O. PROCEDURE: CT FACIAL BONES W CON INDICATIONS: L maxilla swelling TECHNIQUE: After the administration of intravenous contrast, 2.5 mm axial sections acquired from the mid-neck to the frontal sinuses, with coronal and sagittal reformats. For radiation dose reduction, the following was used: automated exposure control, adjustment of mA and/or kV according to patient size. COMPARISON: None. FINDINGS: Image quality: Excellent. Soft tissues: No edema, masses, or fluid collections on the right but there is extensive edema involving the superficial soft tissues adjacent to the right maxilla. Two adjacent teeth appear severely a decayed and there is osteal lucency involving the maxilla adjacent to their root beds. Osteomyelitis appears present involving the maxillary bone in that area, and overlying soft tissue swelling is associated with focal osteolysis involving the inferior lateral wall of the left maxillary sinus. This is best seen on series 3, image 31. An inflammatory mass is immediately adjacent, partially obscured by metal artifact from dental work but measuring approximately 2.3 cm in diameter. A rim enhancing abscess is not identified as cause of this appearance. . No enlarged lymph nodes. Vascular: Visualized vascular structures appear patent throughout. Bony vascular foramina and canals appear normal. Bones: Facial bones appear intact, without fractures, erosions, or destruction. Visualized portions of the skull base and auditory canals also appear normal. Sinuses: Paranasal sinuses are aerated without fluid levels, mucosal thickening, or mucoceles. Mastoid air cells are aerated. 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 There is secondary soft tissue thickening involving the left maxillary sinus cavity and superficial to the lateral wall of this sinus is prominent anterolateral left facial soft tissue swelling without definite abscess formation. Decay involving 2 maxillary teeth is extensive, and the root of each of these 2 teeth appears free floating within an area of osteolysis. Dictated by: Antonio Garces M.D. on 10/05/2020 at 15:56 Approved by: Antonio Garces M.D. on 10/05/2020 at 16:04 ECG Data Attestation: I personally reviewed and interpreted this ECG as follows: Interpretation: Atrial fibrillation Ventricular rate 99 Normal QRS Occasional PVC No ST T wave changes MDM Narrative Medical decision making narrative: Patient is not toxic appearing. His labs are unremarkable. He is afebrile. Does not have leukocytosis. Normal lactate. No problems breathing. No problems swallowing. CT scan does not show an abscess in his left maxilla. He does show signs of osteomyelitis. He was given antibiotics and fluids here in the emergency department he states he does feel much better after this. Did discuss the case with Dr. Scott with oral maxillofacial surgery at [facility] who stated that patient can be discharged home on antibiotics with follow-up with either a general dentist to have his teeth extracted which will probably be needed in order to completely resolve his issues or be followed up with oral maxillofacial surgery. I did discuss this with the patient. Steroids were given for home FS recommendation. Patient was given return precautions and follow-up instructions. He expressed understanding and agreement. Discharge Plan Departure Patient Disposition: Home Clinical Impression: Dental infection Instructions: DI for Tooth Decay Activity Restrictions/Additional Instructions: You do have a significant infection in the left side of your face which is most likely related to the issues that you are having with your teeth. It is important that you follow-up with a general dentist has you will most likely need teeth extracted. Continue all of your medications as directed and return to the emergency department for any new or worsening symptoms like we discussed. Prescriptions: New clindamycin HCl 300 mg capsule 300 mg PO QID 10 Days Qty: 40 RF: 0 chlorhexidine gluconate [Peridex] 0.12 % mouthwash 15 ml buccal BID 10 Days Qty: 473 RF: 1 No Action fluticasone propion-salmeterol [Advair Diskus] 250-50 mcg/dose Blister With Device 1 inh INHALATION BID RF: 0 metoprolol succinate 100 mg Tablet Extended Release 24 Hr 150 mg PO DAILY RF: 0 levothyroxine 50 mcg Tablet 50 mcg PO DAILY RF: 0 pantoprazole 40 mg Tablet,Delayed Release (Dr/Ec) 40 mg PO DAILY RF: 0 digoxin 125 mcg (0.125 mg) Tablet 62.5 mcg PO DAILY RF: 0 diltiazem HCl 240 mg Tablet Extended Release 24 Hr 240 mg PO DAILY RF: 0 torsemide 20 mg tablet 20 mg PO BID RF: 0 metoprolol succinate 50 mg Tablet Extended Release 24 Hr 50 mg PO BEDTIME RF: 0 Referrals: GarcíaZak, NAE [Physician] -
[2020-10-05 14:31] LABS: Add Manual Diff / Slide Review NO; Basophils Absolute Auto 100 /uL (0-100); Basophils Percent Auto 0.7 % (0-2); Eosinophils Absolute Auto 100 /uL (0-450); Eosinophils Percent Auto 0.7 % (2-4); Hematocrit 44.9 % (41-53); Hemoglobin 14.7 g/dL (13.5-17.5); Lymphocytes Absolute Auto 700 /uL (1100-4500); Lymphocytes Percent Auto 6.9 % (25-40); Mean Corpuscular HGB Conc 32.7 % (30-36); Mean Corpuscular Hemoglobin 26.9 PG (26-34); Mean Corpuscular Volume 82.2 fL (80-100); Monocytes Absolute Auto 1200 /uL (0-900); Monocytes Percent Auto 12.1 % (3-14); Neutrophils Absolute Auto 8200 /uL (1500-7000); Neutrophils Percent Auto 79.6 % (50-75); Platelet Count 114 X10^3/uL (150-400); Red Blood Cell Count 5.46 X10^6/uL (4.5-5.9); Red Cell Distribution Width 17.5 % (11.6-14.8); White Blood Cell Count 10.3 X10^3/uL (4.5-11.0)
[2020-10-05] MEDS: CLINDAMYCIN 900 MG/50 ML PIGGYBACK 50 MG IV (14:34)
[2020-10-05] MEDS: SODIUM CHLORIDE 0.9% 1,000 ML 1000 ML IV (14:34)
[2020-10-05 14:41] LABS: Lactate (Lactic Acid) 1.3 mmol/L (0.7-2.1)
[2020-10-05 14:42] LABS: Alanine Aminotransferase 11 IU/L (<50); Albumin 4.2 g/dL (3.5-5.0); Albumin Globulin Ratio 1.1 (1.0-2.8); Alkaline Phosphatase 122 U/L (38-126); Aspartate Aminotransferase 21 IU/L (17-59); BUN Creatinine Ratio 42.2 (6-22); Bilirubin Total 1.3 mg/dL (0.2-1.3); Blood Urea Nitrogen 38 mg/dL (9-20); Calcium 9.2 mg/dL (8.4-10.2); Carbon Dioxide 28 mmol/L (22-32); Chloride 100 mmol/L (98-107); Estimated Glomerular Filt Rate > 60.0 mL/min (>60); Glucose 135 mg/dL (80-110); HEMOLYSIS < 15 (0-50); Lipase 219 U/L (23-300); Sodium 135 mmol/L (137-145); Total Protein 8.2 g/dL (6.3-8.2)
--- NOTE | 2020-10-05 14:51 | DI.CT.S_ITS ---
PROCEDURE: CT FACIAL BONES W CON INDICATIONS: L maxilla swelling TECHNIQUE: After the administration of intravenous contrast, 2.5 mm axial sections acquired from the mid-neck to the frontal sinuses, with coronal and sagittal reformats. For radiation dose reduction, the following was used: automated exposure control, adjustment of mA and/or kV according to patient size. COMPARISON: None. FINDINGS: Image quality: Excellent. Soft tissues: No edema, masses, or fluid collections on the right but there is extensive edema involving the superficial soft tissues adjacent to the right maxilla. Two adjacent teeth appear severely a decayed and there is osteal lucency involving the maxilla adjacent to their root beds. Osteomyelitis appears present involving the maxillary bone in that area, and overlying soft tissue swelling is associated with focal osteolysis involving the inferior lateral wall of the left maxillary sinus. This is best seen on series 3, image 31. An inflammatory mass is immediately adjacent, partially obscured by metal artifact from dental work but measuring approximately 2.3 cm in diameter. A rim enhancing abscess is not identified as cause of this appearance. . No enlarged lymph nodes. Vascular: Visualized vascular structures appear patent throughout. Bony vascular foramina and canals appear normal. Bones: Facial bones appear intact, without fractures, erosions, or destruction. Visualized portions of the skull base and auditory canals also appear normal. Sinuses: Paranasal sinuses are aerated without fluid levels, mucosal thickening, or mucoceles. Mastoid air cells are aerated. 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 There is secondary soft tissue thickening involving the left maxillary sinus cavity and superficial to the lateral wall of this sinus is prominent anterolateral left facial soft tissue swelling without definite abscess formation. Decay involving 2 maxillary teeth is extensive, and the root of each of these 2 teeth appears free floating within an area of osteolysis. Dictated by: Antonio Garces M.D. on 10/05/2020 at 15:56 Approved by: Antonio Garces M.D. on 10/05/2020 at 16:04
[2020-10-05 14:59] LABS: Procalcitonin 0.09 ng/mL (<0.5)
[2020-10-05 19:32] LABS: Bacteria Urine None Seen
[2020-10-05] MEDS: dexAMETHasone 4 MG TABLET 12 MG PO (19:44)
[2020-10-05 19:52] LABS: Culture Indicated Urine Cult Not Indicated; RBC Urine 0-1/HPF (0-5/HPF); Squamous Epithelial Cell Urine 0-1 /HPF (0-5/HPF); WBC Urine 1-5/HPF (0-5/HPF)
[2020-10-05 19:54] VITALS: TEMP 36.6
== END 2020-10-05 19:58 | disposition home or self-care (01) ==
PROVIDERS: Emergency Provider Emergency Medicine
DX: K04.7 Periapical abscess without sinus (principal); I48.91 Unspecified atrial fibrillation
CPT/HCPCS: 36415; 70487; 80053; 81003; 81015; 83605; 83690; 84145; 85025; 87040; 93005; 93010; 96361; 96365; 99284; Q9967